=== PATIENT | male | born 1965 | race Caucasian/White ===

== ENCOUNTER → 2016-03-25 | Outpatient (CLI) | payer OTHER ==
--- NOTE | 2016-03-26 12:03 | PE ---
EXAMINATION TYPE: PET CT fusion skull to thigh DATE OF EXAM: 03/25/2016 2:01 PM CLINICAL HISTORY: 51-year-old male with solitary pulmonary nodule, initial exam. Patient also with hi story of thyroid cancer status post surgery performed in November and December 2015. TECHNIQUE: Following the intravenous administration of 13.0 mCi of F-18 FDG, whole body images are performed from the skull base to the midthigh. Images are reviewed on the computer in the coronal, a xial, and sagittal planes. Reconstructed rotating images are created on independent workstation and reviewed on the computer. A localization and attenuation correction CT is performed in conjunction with the PET scan. Glucose level: 91 mg/dL COMPARISON: CT chest 09/07/2015 and 10/31/2013 FINDINGS: PET: There is intense increased FDG uptake within the masseter muscles and the right pterygoid musculature . This suggests muscular activity, probably associated with chewing. Additional intense hypermetabolism involving some of the floor the mouth musculature and in the regio n of the lingual tonsils somewhat asymmetrically towards the right, maximal SUV 9.5. The area of soft tissue irregularity with associated calcification along the left aryepiglottic fold shows no discrete FDG uptake. There is borderline intense FDG uptake in the region of the larynx, maximal SUV 5.6, but no discrete CT abnormality. Likely product of phonation. There is slight increased FDG uptake, borderline moderate, in the right thyroidectomy bed and also an teriorly along the strap musculature, maximal SUV 3.0. No abnormal soft tissue by CT. A nonenlarged upper right cervical lymph node measures 7 mm and shows borderline moderate FDG uptake of 3.2. A prominent but nonenlarged 9 mm left superior mediastinal lymph node shows no discrete FDG uptake. Two adjacent 6 mm pulmonary nodules along the minor fissure are unchanged from 2014. Small 4 mm pulmonary nodule peripheral right base axial image 125 is unchanged from 2014 as is a tiny 3 mm pulmonary nodule peripheral right lower lung axial image 114. No suspicious hypermetabolism within the lungs. Heterogeneous FDG uptake of the liver likely physiologic. Otherwise, physiologic FDG uptake within the chest, abdomen, and pelvis. Scattered mild to moderate FDG uptake especially in the thoracic spine likely on a degenerative basis . ATTENUATION CORRECTION CT: No enlarged cervical lymphadenopathy seen. Status post thyroidectomy. Heart is borderline enlarged without pericardial effusion. Aorta is normal caliber with conventional arch vessel branching anatomy. Otherwise, no thoracic lymphadenopathy. Patchy opacities dependently within the lungs suggestive of atelectasis. No pleural effusion. Moderate right greater than left a symmetric gynecomastia. No dilated small bowel, free fluid, or free air. Normal appendix. Scattered prominent mesenteric lymp h nodes measuring up to 6 mm appear unchanged from 09/07/2015 where scanning extended into the upper a bdomen. Bladder is nondistended. Prostate gland is enlarged measuring 5.9 cm wide with central prostatic calc ifications. No abnormal fluid collection in the pelvis or pelvic lymphadenopathy. Bones: There is L1-L2 posterior fusion hardware. No osseous destructive process. IMPRESSION: 1. Pulmonary nodules measuring up to 6 mm in the right lung are stable from 2014 suggesting a benign etiology. No suspicious FDG uptake within the lungs. 2. Status post thyroidectomy. There is mild, borderline moderate FDG uptake in the right thyroidectom y bed and anteriorly along the strap musculature probably on a postsurgical basis. No abnormal soft t issue appreciated by CT. Correlate with tumor markers. 3. Borderline moderate hypermetabolism within a nonenlarged 7 mm right upper cervical lymph node prob ably reactive/post inflammatory. Again, correlate with thyroid tumor markers. This area can be reasse ssed at follow-up. 4. Intense FDG uptake in the region of the lingual tonsils especially on the right could represent to nsillar hypertrophy. Correlate with direct visualization. 5. Prostatomegaly (5.9 cm wide).
== END | disposition home or self-care (01) ==
LOC: RADPETMAIN 09:48
PROVIDERS: ATTEND Internal Medicine Sleep Medicine
DX: R91.8 Other nonspecific abnormal finding of lung field (principal); N40.0 Benign prostatic hyperplasia without lower urinary tract symptoms; E89.0 Postprocedural hypothyroidism; R94.8 Abnormal results of function studies of other organs and systems
CPT/HCPCS: 78815; A9552

== ENCOUNTER → 2016-07-19 | Outpatient (CLI) | payer OTHER ==
--- NOTE | 2016-07-19 10:28 | CT ---
EXAMINATION TYPE: CT chest wo con DATE OF EXAM: 07/19/2016 9:53 AM COMPARISON: 09/07/2015 and 10/31/2013. Also, correlation with PET CT 03/25/2016 HISTORY: 51-year-old male solitary pulmonary nodule TECHNIQUE: Contiguous axial scanning of the chest without IV contrast. Coronal and sagittal reconstru ctions performed. CT DLP: 427.70 mGycm Automated exposure control for dose reduction was used. FINDINGS: Moderate to severe right and mild left gynecomastia incidentally noted. This has progressed even from the PET/CT of 03/25/2016 and can be correlated clinically as to possible etiologies. The heart is normal size with trace pericardial fluid. Aorta is normal caliber with conventional arch vessel branching anatomy. No thoracic lymphadenopathy by CT size criteria. Evaluation of the lungs shows strandy atelectasis or scarring at the left greater than right lung bas e at the anterior right mid lung, a 7 mm an adjacent smaller pulmonary nodule, axial image 28 and 29 are unchanged from 2014. No consolidation or pleural effusion or new pulmonary nodules. Noncontrast images of the upper abdomen show no gross pathology. Mild degenerative disc disease mid thoracic spine. No osseous destructive process. IMPRESSION: 1. A COUPLE ANTERIOR RIGHT MID LUNG PULMONARY NODULES MEASURING UP TO 7 MM ARE STABLE FROM 2014 HAKEEM TIBLE WITH A BENIGN ETIOLOGY. 2. STRANDY ATELECTASIS OR SCARRING AT THE LEFT GREATER THAN RIGHT BASE. 3. MODERATE TO SEVERE RIGHT-SIDED GYNECOMASTIA. THIS HAS PROGRESSED EVEN FROM THE RECENT PET/CT OF . CORRELATE WITH PHYSICAL EXAM FINDINGS TO EXCLUDE ANY SUSPICIOUS PALPABLE ABNORMALITIES AND C ORRELATE CLINICALLY TO POSSIBLE ETIOLOGIES OF INCREASING GYNECOMASTIA.
== END | disposition home or self-care (01) ==
LOC: RADCTMAIN 09:33
PROVIDERS: ATTEND Internal Medicine Sleep Medicine
DX: R91.8 Other nonspecific abnormal finding of lung field (principal)
CPT/HCPCS: 71250

== ENCOUNTER 2016-08-15 11:03 | Day surgery (SDC) | payer OTHER ==
[2016-08-11 10:01] VITALS: BMI 35.1
[~2016-08-15 11:03] MED LIST: DEXAMETHASONE SOD PHOSPHATE 10 MG/ML 1 ML VIAL IV ONE; HEPARIN SODIUM,PORCINE 5,000 UNIT/ML 1 ML VIAL SQ ONE; HYDROmorphone 1 MG/ML 1 ML SYRINGE IVP PRN; MIDAZOLAM 2 MG/2 ML VIAL IV PRN; ONDANSETRON 4 MG/2 ML VIAL IVP ONE; Pre Op ABX Message 1 EACH MISC MISCELLANE ONE; SCOPOLAMINE 1.5MG/72HR PATCH TRANSDERM ONE
[2016-08-15] MEDS ORDERED: LIDOCAINE 1% 20 ML VIAL (10MG/ML) FOR IV START INTRADERMA ONE (11:40)
[2016-08-15] MEDS: LACTATED RINGERS 1,000 ML IV SCH ×2 (11:40→15:35)
[2016-08-15] MEDS ORDERED: HEPARIN SODIUM,PORCINE 5,000 UNIT/ML 1 ML VIAL SQ ONE (12:49)
[2016-08-15] MEDS ORDERED: PROPOFOL 10 MG/ML 20 ML VIAL IV ONE (15:37)
[2016-08-15] MEDS ORDERED: LIDOCAINE 1% INJ 10MG/ML (20 ML MDV) ONE (15:37)
[2016-08-15] MEDS ORDERED: SUCCINYLCHOLINE CHLORIDE 100 MG/5 ML SYR IV ONE (15:37)
[2016-08-15] MEDS ORDERED: HYDROmorphone (PF) 1 MG/ML ONE (15:37)
[2016-08-15] MEDS ORDERED: fentaNYL (PF) 50 MCG/ML 2 ML AMP ONE (15:37)
[2016-08-15] MEDS ORDERED: MIDAZOLAM 2 MG/2 ML VIAL ONE (15:37)
[2016-08-15] MEDS ORDERED: diphenhydrAMINE 50 MG/ML 1 ML VIAL ONE (15:37)
[2016-08-15] MEDS ORDERED: SODIUM CHLORIDE 0.9% 50 ML with ceFAZolin 2,000 MG IV ONE ×2 (15:45)
--- NOTE | 2016-08-15 17:06 | P.OP ---
Date of Procedure: 08/15/16 Preoperative Diagnosis: Breast gynecomastia right Postoperative Diagnosis: Same Procedure(s) Performed: nipple sparing Mastectomy Implants: Anesthesia: MANDI Surgeon: Leana Mcleod Estimated Blood Loss (ml): 25 Pathology: other (Right breast) Condition: stable Disposition: PACU Indications for Procedure: Painful enlarging right breast, Operative Findings: Dense right breast tissue Description of Procedure: Patient was taken to the operating room and following induction of general anesthesia the right breast was prepped and draped in a sterile fashion. An incision was made which was extending from the patient. Medial and lateral. This incision superior and inferior skin flaps were developed. The lighted retractor was utilized to help identify the tissue planes. The skin flaps were developed initially superiorly down to the pectoralis major muscle. The inferior skin flap was then developed to the pectoralis major muscle inferiorly. The breast was then removed from superior to inferior from off the pectoralis major muscle. Hemostasis was attained using electrocautery device as well as the LigaSure. After the specimen was removed it was painted for orientation. At the end of the procedure the wound was examined for hemostasis. It was well irrigated. After we were assured that hemostasis was attained a Bharath-Redman drain was placed. This was brought out laterally. The deep tissues were closed with a 3- 0 Vicryl suture. The skin was closed with a 4-0 Monocryl. All instrument and sponge counts were correct at the end of the case. The patient tolerated the procedure in stable condition.
--- NOTE | 2016-08-15 17:07 | P.DS ---
Providers Attending physician: Leana Mcleod Primary care physician: Santi Luque Plan - Discharge Summary New Discharge Prescriptions: No Action Levothyroxine Sodium [Tirosint] 150 mcg PO DAILY Calcium Carbonate [Calcium] 500 mg PO DAILY Cyclobenzaprine [Flexeril] 10 mg PO HS HYDROcodone/APAP 7.5-325MG [[place] 7.5-325] 1 tab PO Q6HR PRN PRN Reason: Pain Acetaminophen [Acetaminophen ER] 650 mg PO Q4H PRN PRN Reason: Pain Discharge Medication List Calcium Carbonate [Calcium] 500 mg PO DAILY 04/27/16 [History] Levothyroxine Sodium [Tirosint] 150 mcg PO DAILY 04/27/16 [History] Cyclobenzaprine [Flexeril] 10 mg PO HS 08/11/16 [History] HYDROcodone/APAP 7.5-325MG [[place] 7.5-325] 1 tab PO Q6HR PRN 08/11/16 [History] Acetaminophen [Acetaminophen ER] 650 mg PO Q4H PRN 08/15/16 [History] Follow up Appointment(s)/Referral(s): Leana Mcleod MD [STAFF PHYSICIAN] - 1 Week Activity/Diet/Wound Care/Special Instructions: Teaching drain care Discharge Disposition: HOME SELF-CARE
[2016-08-15 17:31] VITALS: TEMP 97.4
[2016-08-15] MEDS ORDERED: HYDROcodone/APAP 5-325MG 1 EACH TAB PO ONE ×2 (18:51→19:05)
[2016-08-15 19:27] VITALS: BP 124/75; PULSE 109; RESP 20
== END 2016-08-15 19:41 | disposition home or self-care (01) ==
LOC: OR 11:03
PROVIDERS: ATTEND Surgery
DX: N62 Hypertrophy of breast (principal); Z88.5 Allergy status to narcotic agent; Z79.891 Long term (current) use of opiate analgesic; Z79.899 Other long term (current) drug therapy; M19.90 Unspecified osteoarthritis, unspecified site
CPT/HCPCS: 88307; 19300; J2250; J1200; J1644; J1100; J2405; J2001; J3010; J1170; J0690; J0330; J2704

== ENCOUNTER → 2017-03-06 | Outpatient (CLI) | payer OTHER | END | disposition home or self-care (01) | LOC: LABWHC1 14:21 | PROVIDERS: ATTEND Internal Medicine Endocrinology, Diabetes & Metabolism | DX: C73 Malignant neoplasm of thyroid gland (principal) | CPT/HCPCS: 36415; 84432; 84443; 86800 ==

== ENCOUNTER → 2017-06-20 | Outpatient (CLI) | payer OTHER ==
[2017-06-20 09:30] LABS: HGB 18.7 gm/dL (13.0-17.5); MCH 28.6 pg (25.0-35.0); MCHC 33.9 g/dL (31.0-37.0); MCV 84.6 fL (80.0-100.0); Mean Platelet Volume 6.8; Platelet Count 291 k/uL (150-450); RBC 6.52 m/uL (4.30-5.90); RDW 13.1 % (11.5-15.5); WBC 7.8 k/uL (3.8-10.6)
--- NOTE | 2017-06-20 09:32 | US ---
EXAMINATION TYPE: US thyroid st tissue head/neck DATE OF EXAM: 06/20/2017 COMPARISON: 10/15/2015 presurgical thyroid ultrasound CLINICAL HISTORY: C73 Malignant neoplasm thyroid gland. thyroidectomy Bilateral neck scanned, no evidence of lymphadenopathy. No residual tissue seen. Normal appearing post thyroidectomy scan. IMPRESSION: No suspicious recurrent masses in the thyroid bed.
[2017-06-20 09:33] LABS: HCT 55.2 % (39.0-53.0)
[2017-06-20 18:07] LABS: Thyroglobulin <0.20 ng/mL (1.60-59.90)
== END | disposition home or self-care (01) ==
LOC: RADUSWWP 08:48
PROVIDERS: ATTEND Internal Medicine Endocrinology, Diabetes & Metabolism
DX: C73 Malignant neoplasm of thyroid gland (principal); E29.1 Testicular hypofunction
CPT/HCPCS: 36415; 76536; 84403; 84432; 84443; 85027; 86800

== ENCOUNTER 2019-01-15 09:20 | Day surgery (SDC) | payer MEDICARE ==
[2019-01-13 10:51] VITALS: BMI 33.8
--- NOTE | 2019-01-15 09:02 | P.GSHP ---
History of Present Illness H&P Date: 01/15/19 CHIEF COMPLAINT: Colon screen HISTORY OF PRESENT ILLNESS: The patient is a 53-year-old male who presents for colon screen. Lower endoscopy was offered for further evaluation and management. PAST MEDICAL HISTORY: Please see list. PAST SURGICAL HISTORY: Please see list. MEDICATIONS: Please see list. ALLERGIES: Please see list. SOCIAL HISTORY: No illicit drug use FAMILY HISTORY: No reports of Crohn disease or ulcerative colitis. REVIEW OF ORGAN SYSTEMS: CONSTITUTIONAL: No reports of fevers or chills. PHYSICAL EXAM: VITAL SIGNS: Stable GENERAL: Well-developed pleasant in no acute distress. HEENT: No scleral icterus. Extraocular movements grossly intact. Moist buccal mucosa. NECK: Supple without lymphadenopathy. CHEST: Unlabored respirations. Equal bilateral excursions. CARDIOVASCULAR: Regular rate and rhythm. Distal 2+ pulses. ABDOMEN: Soft, nontender, nondistended. MUSCULOSKELETAL: No clubbing, cyanosis, or edema. ASSESSMENT: 1. Colon screen. PLAN: 1. 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 thyroid cancer. History of Any Multi-Drug Resistant Organisms: None Reported Past Surgical History: Back Surgery, Breast Surgery, Hernia Repair, Orthopedic Surgery, Tonsillectomy Additional Past Surgical History / Comment(s): 12/28/15 Completion thyroidectomy, Other surgical hx: Partial thyroidectomy, rhizotomy, back fusion, pain clinic procedures, aaron knee arthroscopy, left ankle surgery, left breast lumpectomy, aaron myringotomy,AARON axillary lymph node removed. THYROIDECTOMY, right mastectomy August 2016, COLONOSCOPY Past Anesthesia/Blood Transfusion Reactions: Previous Problems w/ Anesthesia, Postoperative Nausea & Vomiting (PONV) Additional Past Anesthesia/Blood Transfusion Reaction / Comment(s): HAS TROUBLE URINATING POST OP, states he "comes out mad and angry", last two surgeries had no problems urinating. No problems with aggression after anesthesia. Smoking Status: Never smoker - Past Family History Father Family Medical History: Cancer Additional Family Medical History / Comment(s): Metastatic cancer-is ill with this now and is in his early 80's Mother Family Medical History: Cancer Sister(s) Family Medical History: Cancer Medications and Allergies Home Medications Medication Instructions Recorded Confirmed Type Calcium Carbonate [Calcium] 500 mg PO DAILY 04/27/16 01/13/19 History Cyclobenzaprine [Flexeril] 10 mg PO HS 08/11/16 01/13/19 History HYDROcodone/APAP 7.5-325MG [[place] 1 tab PO Q6HR PRN 08/11/16 01/13/19 History 7.5-325] Acetaminophen [Acetaminophen ER] 650 mg PO Q4H PRN 08/15/16 01/13/19 History Levothyroxine Sodium [Levoxyl] 200 mcg PO DAILY 01/13/19 01/13/19 History Tumeric 500 mg PO DAILY 01/13/19 01/13/19 History Allergies Allergy/AdvReac Type Severity Reaction Status Date / Time tramadol Allergy States " Verified 01/13/19 10:42 feels overwhelmed"
[~2019-01-15 09:20] MED LIST changes: -DEXAMETHASONE SOD PHOSPHATE 10 MG/ML 1 ML VIAL IV ONE; -HEPARIN SODIUM,PORCINE 5,000 UNIT/ML 1 ML VIAL SQ ONE; -HYDROmorphone 1 MG/ML 1 ML SYRINGE IVP PRN; +LACTATED RINGERS 1,000 ML IV SCH; +LIDOCAINE 1% 20 ML VIAL (10MG/ML) FOR IV START INTRADERMA PRN; -MIDAZOLAM 2 MG/2 ML VIAL IV PRN; -ONDANSETRON 4 MG/2 ML VIAL IVP ONE; -Pre Op ABX Message 1 EACH MISC MISCELLANE ONE; -SCOPOLAMINE 1.5MG/72HR PATCH TRANSDERM ONE
[2019-01-15 10:02] VITALS: RESP 16; TEMP 97.5
[2019-01-15] MEDS ORDERED: PROPOFOL 10 MG/ML 20 ML VIAL IV ONE (10:31)
--- NOTE | 2019-01-15 10:58 | P.PCN ---
Date of Procedure: 01/15/19 Description of Procedure: PREOPERATIVE DIAGNOSIS: Personal history of high-risk multiple colon adenomas Colonoscopy screening POSTOPERATIVE DIAGNOSIS: Personal history of high-risk multiple colon adenomas Colonoscopy screening Descending colon polyp OPERATION: Colonoscopy to the ileocecal valve and appendiceal orifice. Colonoscopy with cold forceps biopsy SURGEON: Xenia Valerio MD. ANESTHESIA: MAC. INDICATIONS: The patient is a 89year-old male who presents for colonoscopy screening. Last colonoscopy was 2 years ago with fibers rectal adenoma resected. Benefits and risks were described and informed consent was obtained. DESCRIPTION OF PROCEDURE: The patient had undergone Suprep. He had been brought into the operating room and laid in the left lateral decubitus position. After adequate intravenous sedation, the rectum was examined with 2% lidocaine jelly. External hemorrhoids were encountered. The prostate was moderately enlarged. The rectal tone was within normal limits. No lesions were palpated in the rectal vault. An Olympus colonoscope was advanced until the ileocecal valve and appendiceal orifice were clearly viewed. The prep was good with visualization of the mucosal folds. The scope was removed with visualization of each mucosal fold. No scattered diverticulosis was encountered. Descending colon polyp was cold forcep biopsy. No evidence of focal colitis was found. Retroflexion of the scope demonstrated no internal hemorrhoids. The colon was desufflated. The patient had tolerated the procedure well. Withdrawal time was over 6 minutes. FINDINGS: Aronchick preparation quality scale 1 (1-5) No internal hemorrhoids No external hemorrhoids No arteriovenous malformations No sigmoid diverticulosis Removal of 1 polyp: - Cold forceps biopsy at 40 cm from the anal verge, 5 mm polyp, ascending colon No focal colitis. RECOMMENDATIONS: Repeat colonoscopy 3 years, 2021. Plan - Discharge Summary Discharge Rx Participant: No New Discharge Prescriptions: No Action Calcium Carbonate [Calcium] 500 mg PO DAILY Cyclobenzaprine [Flexeril] 10 mg PO HS HYDROcodone/APAP 7.5-325MG [[place] 7.5-325] 1 tab PO Q6HR PRN PRN Reason: Pain Acetaminophen [Acetaminophen ER] 650 mg PO Q4H PRN PRN Reason: Pain Levothyroxine Sodium [Levoxyl] 200 mcg PO DAILY Tumeric 500 mg PO DAILY Discharge Medication List Calcium Carbonate [Calcium] 500 mg PO DAILY 04/27/16 [History] Cyclobenzaprine [Flexeril] 10 mg PO HS 08/11/16 [History] HYDROcodone/APAP 7.5-325MG [[place] 7.5-325] 1 tab PO Q6HR PRN 08/11/16 [History] Acetaminophen [Acetaminophen ER] 650 mg PO Q4H PRN 08/15/16 [History] Levothyroxine Sodium [Levoxyl] 200 mcg PO DAILY 01/13/19 [History] Tumeric 500 mg PO DAILY 01/13/19 [History] Follow up Appointment(s)/Referral(s): Xenia Valerio MD [STAFF PHYSICIAN] - As Needed Patient Instructions/Handouts: Colonoscopy (GEN), Colorectal Polyps (IP) Activity/Diet/Wound Care/Special Instructions: Repeat colonoscopy 3 years, 2021 Discharge Disposition: HOME SELF-CARE
[2019-01-15 11:19] VITALS: BP 114/75; PULSE 94
== END 2019-01-15 11:57 | disposition home or self-care (01) ==
LOC: ORWHC2ENDO 09:20
PROVIDERS: ATTEND Surgery Plastic and Reconstructive Surgery
DX: Z12.11 Encounter for screening for malignant neoplasm of colon (principal); K63.5 Polyp of colon; M19.90 Unspecified osteoarthritis, unspecified site; E89.0 Postprocedural hypothyroidism; H40.9 Unspecified glaucoma; Z86.010 Personal history of colon polyps; Z98.1 Arthrodesis status; Z85.850 Personal history of malignant neoplasm of thyroid; Z87.440 Personal history of urinary (tract) infections; Z90.89 Acquired absence of other organs; Z98.890 Other specified postprocedural states; Z90.11 Acquired absence of right breast and nipple; Z80.9 Family history of malignant neoplasm, unspecified; Z79.890 Hormone replacement therapy; Z79.899 Other long term (current) drug therapy; Z88.6 Allergy status to analgesic agent; Z88.8 Allergy status to other drugs, medicaments and biological substances
CPT/HCPCS: 88305; 45380; J2704

== ENCOUNTER 2019-08-27 10:08 | Emergency (ER) | payer MEDICARE ==
[2019-08-27 10:14] VITALS: BP 141/92; PULSE 80; RESP 18; TEMP 97.8
[2019-08-27] MEDS ORDERED: SODIUM CHLORIDE 0.9% 500 ML 500 ML IV STA (10:27)
[2019-08-27] MEDS ORDERED: MECLIZINE 12.5 MG TAB PO STA (10:27)
[2019-08-27] MEDS ORDERED: ONDANSETRON 4 MG/2 ML VIAL IVP STA (10:27)
[2019-08-27 10:51] LABS: Basophils # (A) 0.1 k/uL (0-0.2); Basophils % (A) 1 %; Eosinophils # (A) 0.3 k/uL (0-0.7); Eosinophils % (A) 4 %; HCT 46.9 % (39.0-53.0); HGB 16.3 gm/dL (13.0-17.5); Lymphocytes # (A) 2.3 k/uL (1.0-4.8); Lymphocytes % (A) 25 %; MCH 30.5 pg (25.0-35.0); MCHC 34.7 g/dL (31.0-37.0); MCV 87.8 fL (80.0-100.0); Mean Platelet Volume 6.8; Monocytes # (A) 0.4 k/uL (0-1.0); Monocytes % (A) 5 %; Neutrophils # (A) 5.8 k/uL (1.3-7.7); Neutrophils % (A) 63 %; Platelet Count 266 k/uL (150-450); RBC 5.35 m/uL (4.30-5.90); RDW 12.8 % (11.5-15.5); WBC 9.1 k/uL (3.8-10.6)
[2019-08-27 11:04] LABS: ALT 23 U/L (4-49); AST 19 U/L (17-59); African American GFR (CKD) >90 (>60 ml/min/1.73 sqM); Albumin 4.5 g/dL (3.5-5.0); Alkaline Phosphatase 65 U/L (38-126); Anion Gap 10 mmol/L; Blood Urea Nitrogen 16 mg/dL (9-20); Calcium 9.2 mg/dL (8.4-10.2); Carbon Dioxide 22 mmol/L (22-30); Chloride 106 mmol/L (98-107); Glucose 120 mg/dL (74-99); Non-African American GFR(CKD) 81 (>60 ml/min/1.73 sqM); Potassium 4.3 mmol/L (3.5-5.1); Sodium 138 mmol/L (137-145); Total Bilirubin 0.7 mg/dL (0.2-1.3); Total Protein 7.7 g/dL (6.3-8.2)
--- NOTE | 2019-08-27 11:25 | CT ---
EXAMINATION TYPE: CT brain wo con DATE OF EXAM: 08/27/2019 HISTORY: dizziness CT DLP: 1054.4 mGycm. Automated Exposure Control for Dose Reduction was Utilized. TECHNIQUE: CT scan of the head is performed without contrast. COMPARISON: None. FINDINGS: There is no acute intracranial hemorrhage or midline shift identified. There is diffuse v entricular and sulcal prominence consistent with diffuse age-related cerebral atrophy greatest over b ilateral frontal lobes. Link-white matter differentiation is fairly well maintained. Patchy fluid pos teriorly in the right sphenoid and maxillary sinus with fairly moderate mucosal thickening in the eth moid sinuses bilaterally that has some patchy fluid anteriorly. Posterior opacification suspected flu id in the left frontal sinus. Globes are intact bilaterally. IMPRESSION: No acute intracranial hemorrhage or midline shift. There is mild diffuse age-related ce rebral atrophy greatest over bilateral frontal lobes. Acute on chronic paranasal sinus disease noted as detailed above.
--- NOTE | 2019-08-27 11:51 | ED ---
Headache HPI - General Chief Complaint: Headache Stated Complaint: headaches/dizziness Time Seen by Provider: 08/27/19 10:18 Source: RN notes reviewed Mode of arrival: ambulatory Limitations: no limitations - History of Present Illness Initial Comments: 54-year-old male presents emergency Department with chief complaint of dizziness. Patient states it started 6 days ago. Patient states it's only worse with moving states that she started when he laid down and onset for. He states it looks left groin does not happen. He states that the symptoms re solved if he is sitting still, there is no symptoms of chest pain no shortness of breath no fevers or chills. Patient states his normal headache. Patient denies any blurred vision no focal weakness. Patient offers no other complaints, no new medications. - Related Data Home Medications Medication Instructions Recorded Confirmed Cyclobenzaprine [Flexeril] 10 mg PO BID PRN 08/11/16 08/27/19 Acetaminophen [Acetaminophen ER] 650 mg PO QAM 08/15/16 08/27/19 Levothyroxine Sodium [Levoxyl] 200 mcg PO DAILY 01/13/19 08/27/19 Previous Rx's Medication Instructions Recorded Meclizine [Antivert] 25 mg PO TID PRN #15 tab 08/27/19 Allergies Allergy/AdvReac Type Severity Reaction Status Date / Time tramadol AdvReac States " Verified 08/27/19 10:52 feels overwhelmed" Review of Systems ROS Statement: Those systems with pertinent positive or pertinent negative responses have been documented in the HPI. ROS Other: All systems not noted in ROS Statement are negative. Past Medical History Past Medical History: Cancer, Eye Disorder, Osteoarthritis (OA), Prostate Disorder, Thyroid Disorder Additional Past Medical History / Comment(s): hx heart murmur, DDD, glaucoma rt eye-NO RX NEEDED, FREQUENT UTI'S, HX EPIDIDYMITIS, hx. thyroid cancer. History of Any Multi-Drug Resistant Organisms: None Reported Past Surgical History: Back Surgery, Breast Surgery, Hernia Repair, Orthopedic Surgery, Tonsillectomy Additional Past Surgical History / Comment(s): 12/28/15 Completion thyroidectomy, Other surgical hx: Partial thyroidectomy, rhizotomy, back fusion, pain clinic procedures, aaron knee arthroscopy, left ankle surgery, left breast lumpectomy, aaron myringotomy,AARON axillary lymph node removed. THYROIDECTOMY, right mastectomy August 2016, COLONOSCOPY Past Anesthesia/Blood Transfusion Reactions: Previous Problems w/ Anesthesia, Postoperative Nausea & Vomiting (PONV) Additional Past Anesthesia/Blood Transfusion Reaction / Comment(s): HAS TROUBLE URINATING POST OP, states he "comes out mad and angry", last two surgeries had no problems urinating. No problems with aggression after anesthesia. Past Psychological History: No Psychological Hx Reported Smoking Status: Never smoker - Past Family History Father Family Medical History: Cancer Additional Family Medical History / Comment(s): Metastatic cancer-is ill with this now and is in his early 80's Mother Family Medical History: Cancer Sister(s) Family Medical History: Cancer General Exam Limitations: no limitations General appearance: alert, in no apparent distress Head exam: Present: atraumatic, normocephalic, normal inspection Eye exam: Present: normal appearance, PERRL, EOMI. Absent: scleral icterus, conjunctival injection, periorbital swelling ENT exam: Present: normal exam, normal oropharynx, mucous membranes moist, TM's normal bilaterally Neck exam: Present: normal inspection, full ROM. Absent: tenderness, meningismus, lymphadenopathy Respiratory exam: Present: normal lung sounds bilaterally. Absent: respiratory distress, wheezes, rales, rhonchi, stridor Cardiovascular Exam: Present: regular rate, normal rhythm, normal heart sounds. Absent: systolic murmur, diastolic murmur, rubs, gallop, clicks GI/Abdominal exam: Present: soft, normal bowel sounds. Absent: distended, tenderness, guarding, rebound, rigid Neurological exam: Present: alert, oriented X3, CN II-XII intact, reflexes normal. Absent: motor sensory deficit Skin exam: Present: warm, dry, intact, normal color. Absent: rash Course Vital Signs 08/27/19 10:12 Temperature 97.8 F Pulse Rate 80 Respiratory 18 Rate Blood Pressure 141/92 O2 Sat by Pulse 97 Oximetry Medical Decision Making - Medical Decision Making 54-year-old male presented for dizziness. Labs, EKG reviewed no acute abnormality. CT of brain shows parasinus disease otherwise no mass or intracr anial hemorrhage. Patient feels improved after Antivert. Patient's symptoms are only with positional changes. Patient has no ataxia. Return parameters were discussed. - Lab Data Result diagrams: 08/27/19 10:33 08/27/19 10:33 Lab Results 08/27/19 08/27/19 08/27/19 Range/Units 10:33 10:33 10:33 WBC 9.1 (3.8-10.6) k/uL RBC 5.35 (4.30-5.90) m/uL Hgb 16.3 (13.0-17.5) gm/dL Hct 46.9 (39.0-53.0) % MCV 87.8 (80.0-100.0) fL MCH 30.5 (25.0-35.0) pg MCHC 34.7 (31.0-37.0) g/dL RDW 12.8 (11.5-15.5) % Plt Count 266 (150-450) k/uL Neutrophils % 63 % Lymphocytes % 25 % Monocytes % 5 % Eosinophils % 4 % Basophils % 1 % Neutrophils # 5.8 (1.3-7.7) k/uL Lymphocytes # 2.3 (1.0-4.8) k/uL Monocytes # 0.4 (0-1.0) k/uL Eosinophils # 0.3 (0-0.7) k/uL Basophils # 0.1 (0-0.2) k/uL Sodium 138 (137-145) mmol/L Potassium 4.3 (3.5-5.1) mmol/L Chloride 106 (98-107) mmol/L Carbon Dioxide 22 (22-30) mmol/L Anion Gap 10 mmol/L BUN 16 (9-20) mg/dL Creatinine 1.03 (0.66-1.25) mg/dL Est GFR (CKD-EPI)AfAm >90 (>60 ml/min/1.73 sqM) Est GFR (CKD-EPI)NonAf 81 (>60 ml/min/1.73 sqM) Glucose 120 H (74-99) mg/dL Calcium 9.2 (8.4-10.2) mg/dL Total Bilirubin 0.7 (0.2-1.3) mg/dL AST 19 (17-59) U/L ALT 23 (4-49) U/L Alkaline Phosphatase 65 (38-126) U/L Troponin I <0.012 (0.000-0.034) ng/mL Total Protein 7.7 (6.3-8.2) g/dL Albumin 4.5 (3.5-5.0) g/dL Disposition Clinical Impression: Vertigo Disposition: HOME SELF-CARE Condition: Stable Instructions (If sedation given, give patient instructions): Vertigo (ED) Additional Instructions: Please return to the Emergency Department if symptoms worsen or any other concerns. Prescriptions: Meclizine [Antivert] 25 mg PO TID PRN #15 tab PRN Reason: Vertigo Is patient prescribed a controlled substance at d/c from ED?: No Referrals: Santi Luque DO [Primary Care Provider] - 1-2 days Samuel Saldivar MD [STAFF PHYSICIAN] - 1-2 days Time of Disposition: 11:49
== END 2019-08-27 12:17 | disposition home or self-care (01) ==
LOC: EC 10:08
DX: R42 Dizziness and giddiness (principal); R51 Headache; M19.90 Unspecified osteoarthritis, unspecified site; E07.9 Disorder of thyroid, unspecified; Z79.890 Hormone replacement therapy; Z79.899 Other long term (current) drug therapy; Z88.6 Allergy status to analgesic agent; Z90.11 Acquired absence of right breast and nipple; Z90.89 Acquired absence of other organs; Z85.850 Personal history of malignant neoplasm of thyroid
CPT/HCPCS: 36415; 93005; 80053; 84484; 85025; 70450; 99284; 96374; 96361; J2405

== ENCOUNTER → 2020-01-07 | Outpatient (CLI) | payer MEDICARE ==
--- NOTE | 2020-01-07 14:56 | US ---
EXAMINATION TYPE: US thyroid st tissue head/neck DATE OF EXAM: 01/07/2020 COMPARISON: NONE CLINICAL HISTORY: C73 Malignant neoplasm of thyroid gland. Removed CA GLAND SIZE: Right Lobe: Surgically absent Left Lobe: Surgically absent Isthmus Thickness: Surgically absent NODULES no nodules or recurrent soft tissue is evident. Bilateral neck scanned, no evidence of lymphadenopathy. IMPRESSION: 1. Normal thyroid bed.
== END | disposition home or self-care (01) ==
LOC: RADUSWWP 12:59
PROVIDERS: ATTEND Internal Medicine Endocrinology, Diabetes & Metabolism
DX: C73 Malignant neoplasm of thyroid gland (principal)
CPT/HCPCS: 76536

== ENCOUNTER → 2020-08-13 | Outpatient (CLI) | payer MEDICARE ==
--- NOTE | 2020-08-13 14:14 | FL ---
EXAMINATION TYPE: FL barium swallow DATE OF EXAM: 08/13/2020 CLINICAL HISTORY: Heartburn, indigestion TECHNIQUE: A double contrast esophagram is performed utilizing air and barium. A total of 1 minute 8 seconds of fluoroscopic time was utilized during procedure. COMPARISON: None FINDINGS: The esophagus shows normal motility and emptying into the stomach. No evidence of hiatal h ernia or stricture noted. No significant gastroesophageal reflux was seen during real time performanc e of this study. IMPRESSION: 1. Unremarkable double contrast esophagram study.
== END | disposition home or self-care (01) ==
LOC: RADUSWWP 10:38
PROVIDERS: ATTEND Family Medicine
DX: K30 Functional dyspepsia (principal)
CPT/HCPCS: 74220

== ENCOUNTER → 2020-09-16 | Outpatient (CLI) | payer MEDICARE ==
--- NOTE | 2020-09-21 15:20 | NM ---
EXAMINATION TYPE: NM DatScan Brain SPECT DATE OF EXAM: 09/16/2020 COMPARISON: NONE HISTORY: Tremors, G 25.0 TECHNIQUE: 10 drops of Lugol's solution was administered 1 hour prior to injection as a thyroid bloc sharon agent. After the administration of 4.41 mCi I-123 Ioflupane DaTscan. Images obtained 3 hours p ost injection. SPECT images of the brain were acquired with axial and coronal reconstructions. FINDINGS: The uptake along the striata shows the expected normal configuration, is comma-shaped. There is ques tionable asymmetric overall intensity right greater than left however. Quantitative analysis is not a vailable at this time however. IMPRESSION: Mild asymmetry in uptake as described.
== END | disposition home or self-care (01) ==
LOC: RADNMMAIN 10:49
PROVIDERS: ATTEND Psychiatry & Neurology Neurology
DX: G25.0 Essential tremor (principal)
CPT/HCPCS: 78803; A9584

== ENCOUNTER → 2021-01-11 | Outpatient (CLI) | payer MEDICARE | END | disposition home or self-care (01) | LOC: LABWHC1 10:58 | PROVIDERS: ATTEND Internal Medicine Endocrinology, Diabetes & Metabolism | DX: C73 Malignant neoplasm of thyroid gland (principal) | CPT/HCPCS: 36415; 84432; 84443; 86800 ==

== ENCOUNTER → 2021-03-14 | Outpatient (CLI) | payer SELFPAY | END | disposition home or self-care (01) | LOC: LABWHC1 10:31 | PROVIDERS: ATTEND Internal Medicine Endocrinology, Diabetes & Metabolism | DX: C73 Malignant neoplasm of thyroid gland (principal) | CPT/HCPCS: 36415; 84443 ==

== ENCOUNTER 2021-09-07 07:31 | Day surgery (SDC) | payer MEDICARE ==
[2021-09-02 14:08] VITALS: BMI 33.0
[~2021-09-07 07:31] MED LIST changes: +LIDOCAINE 1% (10MG/ML) FOR IV START INTRADERMA PRN; -LIDOCAINE 1% 20 ML VIAL (10MG/ML) FOR IV START INTRADERMA PRN
--- NOTE | 2021-09-07 07:39 | P.GSHP ---
History of Present Illness H&P Date: 09/07/21 CHIEF COMPLAINT: Colon screen HISTORY OF PRESENT ILLNESS: The patient is a 56-year-old male who presents for colon screen. Lower endoscopy was offered for further evaluation and management. PAST MEDICAL HISTORY: Please see list. PAST SURGICAL HISTORY: Please see list. MEDICATIONS: Please see list. ALLERGIES: Please see list. SOCIAL HISTORY: No illicit drug use FAMILY HISTORY: No reports of Crohn disease or ulcerative colitis. REVIEW OF ORGAN SYSTEMS: CONSTITUTIONAL: No reports of fevers or chills. PHYSICAL EXAM: VITAL SIGNS: Stable GENERAL: Well-developed pleasant in no acute distress. HEENT: No scleral icterus. Extraocular movements grossly intact. Moist buccal mucosa. NECK: Supple without lymphadenopathy. CHEST: Unlabored respirations. Equal bilateral excursions. CARDIOVASCULAR: Regular rate and rhythm. Distal 2+ pulses. ABDOMEN: Soft, nontender, nondistended. MUSCULOSKELETAL: No clubbing, cyanosis, or edema. ASSESSMENT: 1. Colon screen. PLAN: 1. Recommend proceeding with a lower endoscopy Past Medical History Past Medical History: Cancer, Musculoskeletal Disorder, Osteoarthritis (OA), Prostate Disorder, Rheumatoid Arthritis (RA), Thyroid Disorder Additional Past Medical History / Comment(s): Hx heart murmur as child, DDD w/ fusion L1-2, Freq UTI'S, BPH - recent AB Rx, Hx EPIDIDYMITIS, hx thyroid cancer. "Pre-diabetes." Neuropathy BLE. Hx pos TB w/ tx. History of Any Multi-Drug Resistant Organisms: None Reported Past Surgical History: Back Surgery, Breast Surgery, Hernia Repair, Orthopedic Surgery, Tonsillectomy Additional Past Surgical History / Comment(s): 12/28/15 Completion thyroidectomy, Other surgical hx: Partial thyroidectomy, rhizotomy, back fusion, pain clinic procedures, aaron knee arthroscopy, left ankle surgery, left breast lumpectomy, BMT, AARON axillary lymph node removed, Rt mastectomy 08/2016, COLONOSCOPY, abd hernia Past Anesthesia/Blood Transfusion Reactions: Previous Problems w/ Anesthesia, Postoperative Nausea & Vomiting (PONV) Additional Past Anesthesia/Blood Transfusion Reaction / Comment(s): Hx trouble urinating post-op, states he "comes out mad and angry", last two surgeries had no problems urinating. No problems with aggression after MAC anesthesia. Smoking Status: Never smoker - Past Family History Father Family Medical History: Cancer Additional Family Medical History / Comment(s): Lung cancer, w/ Metastatic cancer-is ill with this now and is in his early 80's Mother Family Medical History: Cancer Additional Family Medical History / Comment(s): stomach cancer Sister(s) Family Medical History: Cancer Additional Family Medical History / Comment(s): melanoma cancer; 1 other sister w/ breast cancer, director skills cancer Medications and Allergies Home Medications Medication Instructions Recorded Confirmed Type Cyclobenzaprine [Flexeril] 10 mg PO BID PRN 08/11/16 09/02/21 History Levothyroxine Sodium [Levoxyl] 300 mcg PO MOTUWETHFRSA 01/13/19 09/02/21 History Aspirin [Aspirin EC] 1,500 mg PO DAILY PRN 09/02/21 09/02/21 History Calcium Citrate 500 mg PO DAILY 09/02/21 09/02/21 History Folic Acid 1 mg PO DAILY 09/02/21 09/02/21 History Gabapentin [Neurontin] 300 mg PO DAILY 09/02/21 09/02/21 History HYDROcodone/APAP 7.5-325MG [[place] 1 tab PO Q6HR PRN 09/02/21 09/02/21 History 7.5-325] Multivit-Min/Folic/Vit K/Lycop 1 each PO DAILY 09/02/21 09/02/21 History [Men's Multivitamin Tablet] metHOTREXate sodium [Methotrexate] 20 mg PO SA 09/02/21 09/02/21 History Allergies Allergy/AdvReac Type Severity Reaction Status Date / Time primidone AdvReac emotional, Verified 09/02/21 13:43 depressed tramadol AdvReac States " Verified 09/02/21 13:43 feels overwhelmed"
[2021-09-07 07:57] VITALS: TEMP 97.6
[2021-09-07 08:11] LABS: Glucose,Whole Blood 131 mg/dL (70-110)
[2021-09-07] MEDS ORDERED: PROPOFOL 10 MG/ML 20 ML VIAL IV ONE (09:01)
[2021-09-07 09:25] VITALS: RESP 16
[2021-09-07 09:39] VITALS: BP 133/70; PULSE 98
--- NOTE | 2021-09-13 12:44 | P.PCN ---
Date of Procedure: 09/07/21 Description of Procedure: PREOPERATIVE DIAGNOSIS: History of colon polyp Colonoscopy screening. POSTOPERATIVE DIAGNOSIS: History of colon polyp Colonoscopy screening. Hemorrhoids, external and internal, grade 3 Prostate nodule OPERATION: Colonoscopy to the cecum, ileocecal valve and appendiceal orifice. SURGEON: Xenia Valerio MD. ANESTHESIA: MAC. INDICATIONS: The patient is a 56-year-old male who presents for colonoscopy screening. Last colonoscopy less than 5 years ago. Benefits and risks were described and informed consent was obtained. DESCRIPTION OF PROCEDURE: The patient had undergone Gatorade MiraLAX prep. The patient had been brought into the operating room and laid in the left lateral decubitus position. After adequate intravenous sedation, the rectum was examined with 2% lidocaine jelly. External hemorrhoids were encountered. Prostate nodule was identified of 5-8 mm. The rectal tone was within normal limits. No lesions were palpated in the rectal vault. An Olympus colonoscope was advanced until the cecum, ileocecal valve and appendiceal orifice were viewed. The prep was good. No scattered diverticulosis was encountered. No colonic polyps were found. No evidence of focal colitis was found. Retroflexion of the scope demonstrated grade 3 internal hemorrhoids without active bleeding or inflammation. The colon was desufflated. The patient had tolerated the procedure well. Withdrawal time was over 6 minutes. FINDINGS: Aronchick preparation quality scale 2 (1-5) Prostate nodule was identified of 5-8 mm. Internal hemorrhoids, grade 3 External prolapsed hemorrhoids, greade 3 No arteriovenous malformations. No adenomatous polyps. No focal colitis. RECOMMENDATIONS: Lower endoscopy in 5 years, 2026 Plan - Discharge Summary Discharge Rx Participant: No New Discharge Prescriptions: Continue Cyclobenzaprine [Flexeril] 10 mg PO BID PRN PRN Reason: Muscle Spasm Levothyroxine Sodium [Levoxyl] 300 mcg PO MOTUWETHFRSA HYDROcodone/APAP 7.5-325MG [[place] 7.5-325] 1 tab PO Q6HR PRN PRN Reason: Pain metHOTREXate sodium [Methotrexate] 20 mg PO SA Multivit-Min/Folic/Vit K/Lycop [Men's Multivitamin Tablet] 1 each PO DAILY Calcium Citrate 500 mg PO DAILY Gabapentin [Neurontin] 300 mg PO DAILY Folic Acid 1 mg PO DAILY Aspirin [Aspirin EC] 1,500 mg PO DAILY PRN PRN Reason: Pain Discharge Medication List Cyclobenzaprine [Flexeril] 10 mg PO BID PRN 08/11/16 [History] Levothyroxine Sodium [Levoxyl] 300 mcg PO MOTUWETHFRSA 01/13/19 [History] Aspirin [Aspirin EC] 1,500 mg PO DAILY PRN 09/02/21 [History] Calcium Citrate 500 mg PO DAILY 09/02/21 [History] Folic Acid 1 mg PO DAILY 09/02/21 [History] Gabapentin [Neurontin] 300 mg PO DAILY 09/02/21 [History] HYDROcodone/APAP 7.5-325MG [[place] 7.5-325] 1 tab PO Q6HR PRN 09/02/21 [History] Multivit-Min/Folic/Vit K/Lycop [Men's Multivitamin Tablet] 1 each PO DAILY 09/02/21 [History] metHOTREXate sodium [Methotrexate] 20 mg PO SA 09/02/21 [History] Follow up Appointment(s)/Referral(s): Xenia Valerio MD [STAFF PHYSICIAN] - 09/20/21 Patient Instructions/Handouts: *[facility] - (Anesthesia) Endoscopy Discharge Instructions Activity/Diet/Wound Care/Special Instructions: Repeat colonoscopy 5 years, 2026 Discharge Disposition: HOME SELF-CARE
== END 2021-09-07 10:09 | disposition home or self-care (01) ==
LOC: ORWHC2ENDO 07:31
PROVIDERS: ATTEND Surgery Plastic and Reconstructive Surgery
DX: Z12.11 Encounter for screening for malignant neoplasm of colon (principal); Z86.010 Personal history of colon polyps; K64.4 Residual hemorrhoidal skin tags; M06.9 Rheumatoid arthritis, unspecified; E07.9 Disorder of thyroid, unspecified; M19.90 Unspecified osteoarthritis, unspecified site; Z98.1 Arthrodesis status; N40.0 Benign prostatic hyperplasia without lower urinary tract symptoms; R73.03 Prediabetes; G62.9 Polyneuropathy, unspecified; N42.9 Disorder of prostate, unspecified; Z86.11 Personal history of tuberculosis; Z90.11 Acquired absence of right breast and nipple; Z80.0 Family history of malignant neoplasm of digestive organs; Z80.1 Family history of malignant neoplasm of trachea, bronchus and lung; Z81.1 Family history of alcohol abuse and dependence; Z80.8 Family history of malignant neoplasm of other organs or systems; Z79.899 Other long term (current) drug therapy; Z79.82 Long term (current) use of aspirin; Z88.8 Allergy status to other drugs, medicaments and biological substances
CPT/HCPCS: G0105; J2704; 45378

== ENCOUNTER → 2021-09-14 | Outpatient (CLI) | payer MEDICARE | END | disposition home or self-care (01) | LOC: LABWHC1 10:15 | PROVIDERS: ATTEND Internal Medicine Endocrinology, Diabetes & Metabolism | DX: C73 Malignant neoplasm of thyroid gland (principal) | CPT/HCPCS: 36415; 84432; 84443; 86800 ==

== ENCOUNTER → 2022-02-09 | Outpatient (CLI) | payer MEDICARE ==
--- NOTE | 2022-02-09 12:34 | US ---
EXAMINATION TYPE: US thyroid st tissue head/neck DATE OF EXAM: 02/09/2022 COMPARISON: 01/07/2020 CLINICAL HISTORY: 57-year-old male C73 MALIGNANT NEOPLASM OF THYROID GLAND. Hx thyroid cancer with gl and removed in 2013. Patient is on levothyroxine. TECHNIQUE: Multiple sonographic images of the thyroidectomy bed are obtained. FINDINGS: GLAND SIZE: Right Lobe: Surgically absent Left Lobe: Surgically absent Isthmus Thickness: Surgically absent Bilateral neck scanned, hypoechoic area with hyperechoic center seen: 0.8 x 0.6 x 0.3 cm. This is loc ated along the right side of the neck, inferior to the thyroidectomy bed. IMPRESSION: The thyroidectomy bed remains clear. A nonenlarged 6 mm short axis lymph node is seen along the right side of the neck just below the surgical site. While this has an overall benign appearance, it was n ot seen previously. Follow-up as clinically indicated.
== END | disposition home or self-care (01) ==
LOC: RADUSWWP 09:37
PROVIDERS: ATTEND Internal Medicine Endocrinology, Diabetes & Metabolism
DX: C73 Malignant neoplasm of thyroid gland (principal); R59.0 Localized enlarged lymph nodes
CPT/HCPCS: 76536

== ENCOUNTER 2022-02-18 20:25 | Emergency (ER) | payer MEDICARE ==
[2022-02-18] MEDS ORDERED: ONDANSETRON 4 MG/2 ML VIAL IVP STA (20:44)
[2022-02-18] MEDS ORDERED: KETOROLAC 15 MG/ML 1 ML VIAL IVP STA (20:44)
[2022-02-18] MEDS ORDERED: SODIUM CHLORIDE 0.9% 1,000 ML IV STA (20:44)
[2022-02-18] MEDS ORDERED: MORPHINE SULFATE 4 MG/ML SYRINGE IV STA (20:44)
--- NOTE | 2022-02-18 20:52 | ED ---
Abdominal Pain HPI - General Chief Complaint: Abdominal Pain Stated Complaint: rt pelvic pain/back pain Time Seen by Provider: 02/18/22 20:39 Source: patient, RN notes reviewed Mode of arrival: ambulatory - History of Present Illness Initial Comments: This is a pleasant 57-year-old male who presents to emergency department complaining of right pelvic pain which started suddenly at about 7 PM. Patient does have chronic back pain but states this is unchanged. Patient currently being treated for prostatitis by his urologist, Dr. Alvarez. Vision currently on ciprofloxacin. States she's been on this for about 1 week. Patient denying any hematuria. No history of renal stones. The of aortic pathology. Patient denying any injury. Nausea. No diaphoresis. No chest pain or shortness of breath.patient states the pain is sharp in nature, constant, waxes and wanes in intensity. No headache, no fever or chills, no changes in vision or hearing, no sore throat or difficulty with speech, no neck pain, no chest pain or shortness of breath, no abdominal pain, novomiting, no changes in urination or bowel movements, no numbness or tingling, no extremity pain, no skin rashes or lesions. Past medical, surgical, social, and family history reviewed. No history of diabetes or heart disease. MD Complaint: flank pain - Related Data Home Medications Medication Instructions Recorded Confirmed Cyclobenzaprine [Flexeril] 10 mg PO BID PRN 08/11/16 09/07/21 Levothyroxine Sodium [Levoxyl] 300 mcg PO MOTUWETHFRSA 01/13/19 09/07/21 Aspirin [Aspirin EC] 1,500 mg PO DAILY PRN 09/02/21 09/07/21 Calcium Citrate 500 mg PO DAILY 09/02/21 09/07/21 Folic Acid 1 mg PO DAILY 09/02/21 09/07/21 Gabapentin [Neurontin] 300 mg PO DAILY 09/02/21 09/07/21 HYDROcodone/APAP 7.5-325MG [[place] 1 tab PO Q6HR PRN 09/02/21 09/07/21 7.5-325] Multivit-Min/Folic/Vit K/Lycop 1 each PO DAILY 09/02/21 09/07/21 [Men's Multivitamin Tablet] metHOTREXate sodium [Methotrexate] 20 mg PO SA 09/02/21 09/07/21 Previous Rx's Medication Instructions Recorded Naproxen [Naprosyn] 375 mg PO Q12HR PRN #20 tablet 02/18/22 Allergies Allergy/AdvReac Type Severity Reaction Status Date / Time primidone AdvReac emotional, Verified 02/18/22 20:30 depressed tramadol AdvReac States " Verified 02/18/22 20:30 feels overwhelmed" Review of Systems ROS Statement: Those systems with pertinent positive or pertinent negative responses have been documented in the HPI. ROS Other: All systems not noted in ROS Statement are negative. Past Medical History Past Medical History: Cancer, Musculoskeletal Disorder, Osteoarthritis (OA), Prostate Disorder, Rheumatoid Arthritis (RA), Thyroid Disorder Additional Past Medical History / Comment(s): Hx heart murmur as child, DDD w/ fusion L1-2, Freq UTI'S, BPH - recent AB Rx, Hx EPIDIDYMITIS, hx thyroid cancer. "Pre-diabetes." Neuropathy BLE. Hx pos TB w/ tx. History of Any Multi-Drug Resistant Organisms: None Reported Past Surgical History: Back Surgery, Breast Surgery, Hernia Repair, Orthopedic Surgery, Tonsillectomy Additional Past Surgical History / Comment(s): 12/28/15 Completion thyr oidectomy, Other surgical hx: Partial thyroidectomy, rhizotomy, back fusion, pain clinic procedures, aaron knee arthroscopy, left ankle surgery, left breast lumpectomy, BMT, AARON axillary lymph node removed, Rt mastectomy 08/2016, COLONOSCOPY, abd hernia Past Anesthesia/Blood Transfusion Reactions: Previous Problems w/ Anesthesia, Postoperative Nausea & Vomiting (PONV) Additional Past Anesthesia/Blood Transfusion Reaction / Comment(s): Hx trouble urinating post-op, states he "comes out mad and angry", last two surgeries had no problems urinating. No problems with aggression after MAC anesthesia. Past Psychological History: No Psychological Hx Reported Smoking Status: Never smoker Past Alcohol Use History: None Reported Past Drug Use History: None Reported - Past Family History Father Family Medical History: Cancer Additional Family Medical History / Comment(s): Lung cancer, w/ Metastatic cancer-is ill with this now and is in his early 80's Mother Family Medical History: Cancer Additional Family Medical History / Comment(s): stomach cancer Sister(s) Family Medical History: Cancer Additional Family Medical History / Comment(s): melanoma cancer; 1 other sister w/ breast cancer, artificial limb maker cancer General Exam - General Exam Comments Initial Comments: Patient in distress secondary to right pelvic/right flank pain. Differential diagnosis: Ureteral colic, musculoskeletal pain, appendicitis, urinary tract infection, less likely aortic or vascular pathology--she has no pulsatile mass. General appearance: alert, in distress, obese Head exam: Present: atraumatic, normocephalic, normal inspection Eye exam: Present: normal appearance, PERRL, EOMI. Absent: scleral icterus, conjunctival injection, periorbital swelling ENT exam: Present: normal exam, mucous membranes moist Neck exam: Present: normal inspection. Absent: tenderness, meningismus, lymphadenopathy Respiratory exam: Present: normal lung sounds bilaterally. Absent: respiratory distress, wheezes, rales, rhonchi, stridor Cardiovascular Exam: Present: regular rate, normal rhythm, normal heart sounds. Absent: systolic murmur, diastolic murmur, rubs, gallop, clicks GI/Abdominal exam: Present: soft, normal bowel sounds. Absent: distended, tenderness, guarding, rebound, rigid Extremities exam: Present: normal inspection, full ROM, normal capillary refill. Absent: tenderness, pedal edema, joint swelling, calf tenderness Back exam: Present: normal inspection Neurological exam: Present: alert, oriented X3, CN II-XII intact Psychiatric exam: Present: normal affect, normal mood Skin exam: Present: warm, dry, intact, normal color. Absent: rash Course Vital Signs 02/18/22 02/18/22 02/18/22 20:28 21:24 22:00 Temperature 97.6 F Pulse Rate 119 H 110 H 104 H Respiratory 18 20 18 Rate Blood Pressure 152/88 144/90 140/94 O2 Sat by Pulse 97 97 96 Oximetry 02/18/22 23:11 Temperature 98.1 F Pulse Rate 100 Respiratory 20 Rate Blood Pressure 151/86 O2 Sat by Pulse 97 Oximetry - Reevaluation(s) Reevaluation #1: 02/18/22 22:57 Medical record is reviewed Symptoms are improved here in the emergency department Patient is informed of results and questions answered Patient in no distress Medical Decision Making - Medical Decision Making Differential diagnosis ureteral colic, urinary tract infection, given the presentation, less likely appendicitis, vascular etiology such as aortic pathology. Patient has no pulsatile mass. Shingles unlikely, but possible. Patient's CBC is normal. Urinalysis does show 11 white cells per high-powered field, 2 red cells, rare bacteria, 1 squamous epithelial cell. Patient is already on ciprofloxacin for prostatitis. Patient did have coarse calcifications of the prostate and with prostatomegaly noted. No evidence of hydronephrosis or hydroureter Patient shows no evidence of cauda equina syndrome. He does have chronic low back pain which she states does cause him pain on a daily basis. No specific reason found for the patient's pain. This does raise suspicion of a small renal stone, bowel spasm also possible. Patient also has chronic back pain. Lower thoracic radiculopathy also possible given the area of the patient's pain. Possibly T12 or L1. Discussed all findings in detail with the patient. Discussed findings with the ED attending physician. We discussed disposition. Patient does not feel ill or toxic. Patient states he feels nervous just to be here. Patient states he feels well enough to go home. Discharged through shared decision-making. The case was discussed in detail with ED attending physician. Presentation, findings, treatment plan discussed in detail. Instruction Assistant Principal Dr. Cervantes - Lab Data Result diagrams: 02/18/22 20:55 02/18/22 22:06 Lab Results 02/18/22 02/18/22 02/18/22 Range/Units 20:55 20:55 22:06 WBC 8.2 (3.8-10.6) k/uL RBC 5.13 (4.30-5.90) m/uL Hgb 16.1 (13.0-17.5) gm/dL Hct 46.1 (39.0-53.0) % MCV 89.8 (80.0-100.0) fL MCH 31.3 (25.0-35.0) pg MCHC 34.9 (31.0-37.0) g/dL RDW 13.1 (11.5-15.5) % Plt Count 286 (150-450) k/uL MPV 7.8 Neutrophils % 60 % Lymphocytes % 27 % Monocytes % 6 % Eosinophils % 4 % Basophils % 1 % Neutrophils # 4.9 (1.3-7.7) k/uL Lymphocytes # 2.2 (1.0-4.8) k/uL Monocytes # 0.5 (0-1.0) k/uL Eosinophils # 0.4 (0-0.7) k/uL Basophils # 0.1 (0-0.2) k/uL Sodium (137-145) mmol/L Potassium (3.5-5.1) mmol/L Chloride (98-107) mmol/L Carbon Dioxide (22-30) mmol/L Anion Gap mmol/L BUN (9-20) mg/dL Creatinine (0.66-1.25) mg/dL Est GFR (CKD-EPI)AfAm (>60 ml/min/1.73 sqM) Est GFR (CKD-EPI)NonAf (>60 ml/min/1.73 sqM) Glucose (74-99) mg/dL Plasma Lactic Acid Mik 2.2 H* (0.7-2.0) mmol/L Calcium (8.4-10.2) mg/dL Total Bilirubin (0.2-1.3) mg/dL AST (17-59) U/L ALT (4-49) U/L Alkaline Phosphatase (38-126) U/L Total Protein (6.3-8.2) g/dL Albumin (3.5-5.0) g/dL Urine Color Yellow Urine Appearance Clear (Clear) Urine pH 5.5 (5.0-8.0) Ur Specific [place] 1.019 (1.001-1.035) Urine Protein Trace H (Negative) Urine Glucose (UA) Negative (Negative) Urine Ketones Negative (Negative) Urine Blood Negative (Negative) Urine Nitrite Negative (Negative) Urine Bilirubin Negative (Negative) Urine Urobilinogen <2.0 (<2.0) mg/dL Ur Leukocyte Esterase Moderate H (Negative) Urine RBC 2 (0-5) /hpf Urine WBC 11 H (0-5) /hpf Ur Squamous Epith Cells 1 (0-4) /hpf Urine Bacteria Rare H (None) /hpf Urine Mucus Rare H (None) /hpf 02/18/22 Range/Units 22:06 WBC (3.8-10.6) k/uL RBC (4.30-5.90) m/uL Hgb (13.0-17.5) gm/dL Hct (39.0-53.0) % MCV (80.0-100.0) fL MCH (25.0-35.0) pg MCHC (31.0-37.0) g/dL RDW (11.5-15.5) % Plt Count (150-450) k/uL MPV Neutrophils % % Lymphocytes % % Monocytes % % Eosinophils % % Basophils % % Neutrophils # (1.3-7.7) k/uL Lymphocytes # (1.0-4.8) k/uL Monocytes # (0-1.0) k/uL Eosinophils # (0-0.7) k/uL Basophils # (0-0.2) k/uL Sodium 140 (137-145) mmol/L Potassium 4.0 (3.5-5.1) mmol/L Chloride 106 (98-107) mmol/L Carbon Dioxide 25 (22-30) mmol/L Anion Gap 9 mmol/L BUN 9 (9-20) mg/dL Creatinine 1.06 (0.66-1.25) mg/dL Est GFR (CKD-EPI)AfAm 89 (>60 ml/min/1.73 sqM) Est GFR (CKD-EPI)NonAf 77 (>60 ml/min/1.73 sqM) Glucose 133 H (74-99) mg/dL Plasma Lactic Acid Mik (0.7-2.0) mmol/L Calcium 8.3 L (8.4-10.2) mg/dL Total Bilirubin 0.5 (0.2-1.3) mg/dL AST 32 (17-59) U/L ALT 38 (4-49) U/L Alkaline Phosphatase 68 (38-126) U/L Total Protein 7.1 (6.3-8.2) g/dL Albumin 4.2 (3.5-5.0) g/dL Urine Color Urine Appearance (Clear) Urine pH (5.0-8.0) Ur Specific [place] (1.001-1.035) Urine Protein (Negative) Urine Glucose (UA) (Negative) Urine Ketones (Negative) Urine Blood (Negative) Urine Nitrite (Negative) Urine Bilirubin (Negative) Urine Urobilinogen (<2.0) mg/dL Ur Leukocyte Esterase (Negative) Urine RBC (0-5) /hpf Urine WBC (0-5) /hpf Ur Squamous Epith Cells (0-4) /hpf Urine Bacteria (None) /hpf Urine Mucus (None) /hpf - Radiology Data Radiology results: report reviewed, image reviewed My independent interpretation of the patient's computed tomography scan shows no definitive evidence of acute pathology. I did review the radiology interpretation. Disposition Clinical Impression: Pelvic pain in male, Chronic back pain Narrative: Currently being treated for prostatitis Disposition: HOME SELF-CARE Condition: Stable Instructions (If sedation given, give patient instructions): Pelvic Pain in Men (ED), Chronic Back Pain (DC) Additional Instructions: Continue the antibiotics as directed by your urologist. Follow-up with your regular physician as directed. Return to the ER immediately if any symptoms worsen, new symptoms arise, or any other problems develop. Prescriptions: Naproxen [Naprosyn] 375 mg PO Q12HR PRN #20 tablet PRN Reason: Pain Is patient prescribed a controlled substance at d/c from ED?: No Referrals: Santi Luque DO [Primary Care Provider] - 1-2 days Jordi Alvarez MD [STAFF PHYSICIAN] - 1-2 days Time of Disposition: 23:24
[2022-02-18 21:30] LABS: Basophils # (A) 0.1 k/uL (0-0.2); Basophils % (A) 1 %; Eosinophils # (A) 0.4 k/uL (0-0.7); Eosinophils % (A) 4 %; HCT 46.1 % (39.0-53.0); HGB 16.1 gm/dL (13.0-17.5); Lymphocytes # (A) 2.2 k/uL (1.0-4.8); Lymphocytes % (A) 27 %; MCH 31.3 pg (25.0-35.0); MCHC 34.9 g/dL (31.0-37.0); MCV 89.8 fL (80.0-100.0); Mean Platelet Volume 7.8; Monocytes # (A) 0.5 k/uL (0-1.0); Monocytes % (A) 6 %; Neutrophils # (A) 4.9 k/uL (1.3-7.7); Neutrophils % (A) 60 %; Platelet Count 286 k/uL (150-450); RBC 5.13 m/uL (4.30-5.90); RDW 13.1 % (11.5-15.5); WBC 8.2 k/uL (3.8-10.6)
[2022-02-18 21:52] LABS: Appearance,Urine Clear (Clear); Bacteria,Urine Rare /hpf; Bilirubin,Urine Negative (Negative); Blood,Urine Negative (Negative); Color,Urine Yellow; Glucose,Urine (UA) Negative (Negative); Ketones,Urine Negative (Negative); Leukocyte Esterase,Urine Moderate (Negative); Mucus,Urine Rare /hpf; Nitrite,Urine Negative (Negative); PH, Urine 5.5 (5.0-8.0); Protein,Urine Trace (Negative); RBC,Urine 2 /hpf (0-5); Specific Gravity,Urine 1.019 (1.001-1.035); Squamous Epithelial Cell,Urine 1 /hpf (0-4); Urobilinogen,Urine <2.0 mg/dL (<2.0); WBC,Urine 11 /hpf (0-5)
--- NOTE | 2022-02-18 22:16 | CT ---
EXAMINATION TYPE: CT abdomen pelvis wo con CT DLP: 1251.4 mGycm, Automated exposure control for dose reduction was used. DATE OF EXAM: 02/18/2022 9:49 PM COMPARISON: None. CLINICAL INDICATION:Male, 57 years old with history of Right flank pain/right pelvic pain; RT sided f lank/groin pain TECHNIQUE: Axial CT of the abdomen and pelvis. Sagittal and coronal reformats were created on a [employer] workstation. Contrast used: None. Oral contrast used: without Oral Contrast FINDINGS: LOWER CHEST: Bibasilar atelectasis. ABDOMEN LIVER: Unremarkable GALLBLADDER AND BILE DUCTS: Unremarkable. PANCREAS: Unremarkable. SPLEEN: Unremarkable. ADRENAL GLANDS: Unremarkable. KIDNEYS AND URETERS: No evidence of hydronephrosis or renal calculus. The ureters are unremarkable. PELVIS BLADDER: Unremarkable REPRODUCTIVE: Coarse calcifications of the prostate gland are identified. Prostatomegaly. ABDOMEN & PELVIS STOMACH AND BOWEL: Stomach and duodenum are unremarkable. Scattered diverticula are noted throughout the colon. No evidence of bowel obstruction. PERITONEUM: No evidence of pneumoperitoneum or free fluid. VASCULATURE: No evidence of aortic aneurysm. MUSCULOSKELETAL: Posterior lumbar fusion of L1-L2. No acute osseous abnormalities. LYMPH NODES: No gross evidence for lymphadenopathy. SOFT TISSUE/ABDOMINAL WALL: Fat-containing inguinal hernias bilaterally. IMPRESSION: 1. No acute intra-abdominal or intrapelvic process. 2. Colonic diverticulosis and other incidental findings as described above.
[2022-02-18 22:40] LABS: Albumin 4.2 g/dL (3.5-5.0); Calcium 8.3 mg/dL (8.4-10.2); Total Bilirubin 0.5 mg/dL (0.2-1.3); Total Protein 7.1 g/dL (6.3-8.2)
[2022-02-18] MEDS ORDERED: ORPHENADRINE 30 MG/ML 2 ML VIAL IVP STA (22:56)
[2022-02-18 23:13] VITALS: BP 151/86; PULSE 100; RESP 20; TEMP 98.1
== END 2022-02-18 23:55 | disposition home or self-care (01) ==
LOC: EC 20:25
DX: R10.2 Pelvic and perineal pain (principal); M54.9 Dorsalgia, unspecified; G89.29 Other chronic pain; K57.30 Diverticulosis of large intestine without perforation or abscess without bleeding; M19.90 Unspecified osteoarthritis, unspecified site; E07.9 Disorder of thyroid, unspecified; Z79.891 Long term (current) use of opiate analgesic; Z79.890 Hormone replacement therapy; Z79.82 Long term (current) use of aspirin; Z88.8 Allergy status to other drugs, medicaments and biological substances; Z88.5 Allergy status to narcotic agent
CPT/HCPCS: 36415; 80053; 83605; 85025; 81001; 87086; 74176; 99284; 96374; 96375 ×3; 96361 ×3; J2270; J2360; J2405; J1885

== ENCOUNTER → 2022-02-27 | Outpatient (CLI) | payer MEDICARE ==
--- NOTE | 2022-02-27 11:17 | US ---
EXAMINATION TYPE: US groin RT DATE OF EXAM: 02/27/2022 COMPARISON: CT abdomen and pelvis 9 days ago CLINICAL HISTORY: R10.2, N50.811 RIGHT TESTICULAR PAIN. Pt states right groin pain No abnormality visualized within pt's area of pain/ valsalva maneuvers were obtained Target ultrasound right groin shows no worrisome solid or cystic mass or abnormal fluid collection. N o hernia defect seen on dynamic imaging. Findings correlate with recent CT study. IMPRESSION: As above.
--- NOTE | 2022-02-27 11:18 | US ---
EXAMINATION TYPE: US scrotum with doppler. Grayscale and color Doppler Duplex imaging performed of t he scrotum. DATE OF EXAM: 02/27/2022 COMPARISON: NONE CLINICAL HISTORY: R10.2, N50.811 RIGHT TESTICULAR PAIN. Pt states pain to groin and testicles, more o n right side x 1 week EXAM MEASUREMENTS: TESTICLES: Right Testicle: 3.3 x 1.8 x 2.5 cm Left Testicle: 3.6 x 2.0 x 3.0 cm EPIDIDYMIS HEAD: Right Epididymis: 1.0 cm Left Epididymis: 1.7 cm Doppler performed to assess for testicular vascularity; good bilateral color flow and waveforms are s een. Presence of hydroceles: No Presence of varicoceles: No Testicles appeared wnl Comparison views show symmetric blood flow to bilateral testicles. IMPRESSION: Unremarkable study.
== END | disposition home or self-care (01) ==
LOC: RADUSWWP 10:01
PROVIDERS: ATTEND Family Medicine
DX: R10.2 Pelvic and perineal pain (principal); N50.811 Right testicular pain
CPT/HCPCS: 76870; 93975

== ENCOUNTER → 2022-04-04 | Outpatient (CLI) | payer MEDICARE | END | disposition home or self-care (01) | LOC: LABWHC1 11:42 | PROVIDERS: ATTEND Surgery Plastic and Reconstructive Surgery | DX: Z01.89 Encounter for other specified special examinations (principal); I44.4 Left anterior fascicular block; R94.31 Abnormal electrocardiogram [ECG] [EKG] | CPT/HCPCS: 36415; 93005 ==

== ENCOUNTER 2022-04-15 11:23 | Emergency (ER) | payer MEDICARE ==
[2022-04-15] MEDS ORDERED: SODIUM CHLORIDE 0.9% 1,000 ML IV STA ×2 (11:58)
--- NOTE | 2022-04-15 12:24 | ED ---
General Adult HPI - General Chief complaint: Anxiety Stated complaint: Anxiety Time Seen by Provider: 04/15/22 11:36 Source: patient, RN notes reviewed Mode of arrival: ambulatory Limitations: no limitations - History of Present Illness Initial comments: 57-year-old male presents emergency Department with chief complaint of possible anxiety, palpitations. Patient states that he's had 3 separate occasions where he feels like he is having a panic anxiety attack. Patient states he never had any issues like this in the past. He states that he was off his thyroid medication because he was told to stop it while he was on steroids. Patient states that he recently did restart it but states has not helped. Patient denies any fevers chills cough congestion. Patient states that he recently found out he has bilateral inguinal hernia which is scheduled for repair he states he had an outpatient EKG and which was told it was abnormal and his been referred to cardiology. He denies any other new medications. - Related Data Home Medications Medication Instructions Recorded Confirmed Cyclobenzaprine [Flexeril] 10 mg PO BID PRN 08/11/16 09/07/21 Levothyroxine Sodium [Levoxyl] 300 mcg PO [id number] 01/13/19 09/07/21 Aspirin [Aspirin EC] 1,500 mg PO DAILY PRN 09/02/21 09/07/21 Calcium Citrate 500 mg PO DAILY 09/02/21 09/07/21 Folic Acid 1 mg PO DAILY 09/02/21 09/07/21 Gabapentin [Neurontin] 300 mg PO DAILY 09/02/21 09/07/21 HYDROcodone/APAP 7.5-325MG [[place] 1 tab PO Q6HR PRN 09/02/21 09/07/21 7.5-325] Multivit-Min/Folic/Vit K/Lycop 1 each PO DAILY 09/02/21 09/07/21 [Men's Multivitamin Tablet] metHOTREXate sodium [Methotrexate] 20 mg PO SA 09/02/21 09/07/21 Previous Rx's Medication Instructions Recorded Naproxen [Naprosyn] 375 mg PO Q12HR PRN #20 tablet 02/18/22 LORazepam [Ativan] 1 mg PO TID PRN 3 Days #9 tab 04/15/22 Orphenadrine [Norflex] 100 mg PO Q12H #14 tab 04/15/22 Allergies Allergy/AdvReac Type Severity Reaction Status Date / Time primidone AdvReac emotional, Verified 04/15/22 11:36 depressed tramadol AdvReac States " Verified 04/15/22 11:36 feels overwhelmed" Review of Systems ROS Statement: Those systems with pertinent positive or pertinent negative responses have been documented in the HPI. ROS Other: All systems not noted in ROS Statement are negative. Past Medical History Past Medical History: Cancer, Musculoskeletal Disorder, Osteoarthritis (OA), Prostate Disorder, Rheumatoid Arthritis (RA), Thyroid Disorder Additional Past Medical History / Comment(s): Hx heart murmur as child, DDD w/ fusion L1-2, Freq UTI'S, BPH - recent AB Rx, Hx EPIDIDYMITIS, hx thyroid cancer. "Pre-diabetes." Neuropathy BLE. Hx pos TB w/ tx. History of Any Multi-Drug Resistant Organisms: None Reported Past Surgical History: Back Surgery, Breast Surgery, Hernia Repair, Orthopedic Surgery, Tonsillectomy Additional Past Surgical History / Comment(s): 12/28/15 Completion thyroidectomy, Other surgical hx: Partial thyroidectomy, rhizotomy, back fusion, pain clinic procedures, aaron knee arthroscopy, left ankle surgery, left breast lumpectomy, BMT, AARON axillary lymph node removed, Rt mastectomy 08/2016, COLONOSCOPY, abd hernia Past Anesthesia/Blood Transfusion Reactions: Previous Problems w/ Anesthesia, Postoperative Nausea & Vomiting (PONV) Additional Past Anesthesia/Blood Transfusion Reaction / Comment(s): Hx trouble urinating post-op, states he "comes out mad and angry", last two surgeries had no problems urinating. No problems with aggression after MAC anesthesia. Past Psychological History: No Psychological Hx Reported Smoking Status: Never smoker Past Alcohol Use History: None Reported Past Drug Use History: None Reported - Past Family History Father Family Medical History: Cancer Additional Family Medical History / Comment(s): Lung cancer, w/ Metastatic cancer-is ill with this now and is in his early 80's Mother Family Medical History: Cancer Additional Family Medical History / Comment(s): stomach cancer Sister(s) Family Medical History: Cancer Additional Family Medical History / Comment(s): melanoma cancer; 1 other sister w/ breast cancer, cigar sorter cancer General Exam Limitations: no limitations General appearance: alert, in no apparent distress Head exam: Present: atraumatic, normocephalic, normal inspection Eye exam: Present: normal appearance, PERRL, EOMI. Absent: scleral icterus, conjunctival injection, periorbital swelling ENT exam: Present: normal exam, normal oropharynx, mucous membranes moist Neck exam: Present: normal inspection, full ROM. Absent: tenderness, meningismus, lymphadenopathy Respiratory exam: Present: normal lung sounds bilaterally. Absent: respiratory distress, wheezes, rales, rhonchi, stridor Cardiovascular Exam: Present: regular rate, normal rhythm, normal heart sounds. Absent: systolic murmur, diastolic murmur, rubs, gallop, clicks GI/Abdominal exam: Present: soft, normal bowel sounds. Absent: distended, tenderness, guarding, rebound, rigid Neurological exam: Present: alert, oriented X3, CN II-XII intact, reflexes normal. Absent: motor sensory deficit Course Vital Signs 04/15/22 04/15/22 04/15/22 11:34 13:02 13:49 Temperature 98.2 F Pulse Rate 98 85 84 Respiratory 20 17 17 Rate Blood Pressure 135/94 141/96 131/95 O2 Sat by Pulse 96 96 96 Oximetry Medical Decision Making - Medical Decision Making Was pt. sent in by a medical professional or institution (, PA, RUCHING MACHINE OPERATOR, urgent care, hospital, or retirement...) When possible be specific @ -No Did you speak to anyone other than the patient for history (EMS, parent, family, police, friend...)? What history was obtained from this source @ -No Did you review nursing and triage notes (agree or disagree)? Why? @ -I reviewed and agree with nursing and triage notes Were old charts reviewed (outside hosp., previous admission, EMS record, old EKG, old radiological studies, urgent care reports/EKG's, retirement records)? Report findings @ -No old charts were reviewed Differential Diagnosis (chest pain, altered mental status, abdominal pain women, abdominal pain men, vaginal bleeding, weakness, fever, dyspnea, syncope, headache, dizziness, GI bleed, back pain, seizure, CVA, palpatations, mental health)? @ -Anxiety, palpitations, dehydration, hypothyroidism, this list is not all inconclusive. EKG interpreted by me (3pts min.). @ -EKG performed at 12:54 sinus rhythm rate of 86 [place] 168 QRS 93 QT/QTC 363/407 X-rays interpreted by me (1pt min.). @ -Chest x-ray shows no acute process CT interpreted by me (1pt min.). @ -None done U/S interpreted by me (1pt. min.). @ -None done What testing was considered but not performed or refused? (CT, X-rays, U/S, labs)? Why? @ -None What meds were considered but not given or refused? Why? @ -None Did you discuss the management of the patient with other professionals (professionals i.e. , PA, RUCHING MACHINE OPERATOR, lab, RT, psych nurse, nursing home social worker, solar energy consultant and designer, teacher, training systems officer, community case manager)? Give summary @ -No Was smoking cessation discussed for >3mins.? @ -No Was critical care preformed (if so, how long)? @ -No Were there social determinants of health that impacted care today? How? (Homelessness, low income, unemployed, alcoholism, drug addiction, transportation, low edu. Level, literacy, decrease access to med. care, residential, rehab)? @ -No Was there de-escalation of care discussed even if they declined (Discuss DNR or withdrawal of care, Hospice)? DNR status @ -No What co-morbidities impacted this encounter? (DM, HTN, Smoking, COPD, CAD, Can cer, CVA, ARF, Chemo, Hep., AIDS, mental health diagnosis, sleep apnea, morbid obesity)? @ -Anxiety, hypertension Was patient admitted / discharged? Hospital course, mention meds given and route, prescriptions, significant lab abnormalities, going to OR and other pertinent info. @ -Discharge patient for workup patient does have underlying hyperthyroidism recently started his medication. Patient was given 2 L of fluid and feels somewhat better. He still complains of chronic back issues and an in which she is still having spasms. Patient states his entire somewhat improved. Patient denies any red flag symptoms. Patient advised to follow-up return parameters were discussed. Undiagnosed new problem with uncertain prognosis? @ -No Drug Therapy requiring intensive monitoring for toxicity (Heparin, Nitro, Insulin, Cardizem)? @ -No Were any procedures done? @ -No Diagnosis/symptom? @ -Anxiety Acute, or Chronic, or Acute on Chronic? @ -Acute Uncomplicated (without systemic symptoms) or Complicated (systemic symptoms)? @ -Uncomplicated Side effects of treatment? @ -No Exacerbation, Progression, or Severe Exacerbation? @ -No Poses a threat to life or bodily function? How? (Chest pain, [place], [place], pneumonia, PE, COPD, DKA, ARF, appy, cholecystitis, CVA, Diverticulitis, Homicidal, Suicidal, threat to staff... and all critical care pts) @ -No Diagnosis/symptom? @ -Back pain Acute, or Chronic, or Acute on Chronic? @ -Acute on chronic Uncomplicated (without systemic symptoms) or Complicated (systemic symptoms)? @ -Uncomplicated Side effects of treatment? @ -none Exacerbation, Progression, or Severe Exacerbation] @ -no Poses a threat to life or bodily function? @ -no - Lab Data Result diagrams: 04/15/22 12:13 04/15/22 12:13 Lab Results 04/15/22 04/15/22 04/15/22 Range/Units 12:13 12:13 12:13 WBC 8.5 (3.8-10.6) k/uL RBC 5.11 (4.30-5.90) m/uL Hgb 16.3 (13.0-17.5) gm/dL Hct 45.9 (39.0-53.0) % MCV 89.9 (80.0-100.0) fL MCH 31.9 (25.0-35.0) pg MCHC 35.4 (31.0-37.0) g/dL RDW 13.9 (11.5-15.5) % Plt Count 279 (150-450) k/uL MPV 8.0 Neutrophils % 68 % Lymphocytes % 24 % Monocytes % 4 % Eosinophils % 1 % Basophils % 1 % Neutrophils # 5.8 (1.3-7.7) k/uL Lymphocytes # 2.1 (1.0-4.8) k/uL Monocytes # 0.3 (0-1.0) k/uL Eosinophils # 0.1 (0-0.7) k/uL Basophils # 0.1 (0-0.2) k/uL PT 12.0 (9.0-12.0) sec INR 1.2 H (<1.2) APTT 22.8 (22.0-30.0) sec Sodium (137-145) mmol/L Potassium (3.5-5.1) mmol/L Chloride (98-107) mmol/L Carbon Dioxide (22-30) mmol/L Anion Gap mmol/L BUN (9-20) mg/dL Creatinine (0.66-1.25) mg/dL Est GFR (CKD-EPI)AfAm (>60 ml/min/1.73 sqM) Est GFR (CKD-EPI)NonAf (>60 ml/min/1.73 sqM) Glucose (74-99) mg/dL Calcium (8.4-10.2) mg/dL Magnesium (1.6-2.3) mg/dL Total Bilirubin (0.2-1.3) mg/dL AST (17-59) U/L ALT (4-49) U/L Alkaline Phosphatase (38-126) U/L Troponin I (0.000-0.034) ng/mL Total Protein (6.3-8.2) g/dL Albumin (3.5-5.0) g/dL TSH (0.465-4.680) mIU/L Free T4 (0.78-2.19) ng/dL Urine Color Yellow Urine Appearance Clear (Clear) Urine pH 6.5 (5.0-8.0) Ur Specific [place] 1.016 (1.001-1.035) Urine Protein 1+ H (Negative) Urine Glucose (UA) Negative (Negative) Urine Ketones Negative (Negative) Urine Blood Negative (Negative) Urine Nitrite Negative (Negative) Urine Bilirubin Negative (Negative) Urine Urobilinogen <2.0 (<2.0) mg/dL Ur Leukocyte Esterase Small H (Negative) Urine RBC 1 (0-5) /hpf Urine WBC 7 H (0-5) /hpf Ur Squamous Epith Cells <1 (0-4) /hpf Hyaline Casts 3 H (0-2) /lpf Urine Mucus Few H (None) /hpf 04/15/22 04/15/22 Range/Units 12:13 12:13 WBC (3.8-10.6) k/uL RBC (4.30-5.90) m/uL Hgb (13.0-17.5) gm/dL Hct (39.0-53.0) % MCV (80.0-100.0) fL MCH (25.0-35.0) pg MCHC (31.0-37.0) g/dL RDW (11.5-15.5) % Plt Count (150-450) k/uL MPV Neutrophils % % Lymphocytes % % Monocytes % % Eosinophils % % Basophils % % Neutrophils # (1.3-7.7) k/uL Lymphocytes # (1.0-4.8) k/uL Monocytes # (0-1.0) k/uL Eosinophils # (0-0.7) k/uL Basophils # (0-0.2) k/uL PT (9.0-12.0) sec INR (<1.2) APTT (22.0-30.0) sec Sodium 137 (137-145) mmol/L Potassium 4.1 (3.5-5.1) mmol/L Chloride 104 (98-107) mmol/L Carbon Dioxide 23 (22-30) mmol/L Anion Gap 10 mmol/L BUN 12 (9-20) mg/dL Creatinine 1.34 H (0.66-1.25) mg/dL Est GFR (CKD-EPI)AfAm 67 (>60 ml/min/1.73 sqM) Est GFR (CKD-EPI)NonAf 58 (>60 ml/min/1.73 sqM) Glucose 153 H (74-99) mg/dL Calcium 8.7 (8.4-10.2) mg/dL Magnesium 2.0 (1.6-2.3) mg/dL Total Bilirubin 1.5 H (0.2-1.3) mg/dL AST 50 (17-59) U/L ALT 50 H (4-49) U/L Alkaline Phosphatase 64 (38-126) U/L Troponin I <0.012 (0.000-0.034) ng/mL Total Protein 8.0 (6.3-8.2) g/dL Albumin 4.8 (3.5-5.0) g/dL TSH 89.900 H (0.465-4.680) mIU/L Free T4 0.86 (0.78-2.19) ng/dL Urine Color Urine Appearance (Clear) Urine pH (5.0-8.0) Ur Specific [place] (1.001-1.035) Urine Protein (Negative) Urine Glucose (UA) (Negative) Urine Ketones (Negative) Urine Blood (Negative) Urine Nitrite (Negative) Urine Bilirubin (Negative) Urine Urobilinogen (<2.0) mg/dL Ur Leukocyte Esterase (Negative) Urine RBC (0-5) /hpf Urine WBC (0-5) /hpf Ur Squamous Epith Cells (0-4) /hpf Hyaline Casts (0-2) /lpf Urine Mucus (None) /hpf Disposition Clinical Impression: Acute anxiety, Back pain, Palpitations Disposition: HOME SELF-CARE Condition: Stable Instructions (If sedation given, give patient instructions): Back Pain (ED) Additional Instructions: Please return to the Emergency Department if symptoms worsen or any other concerns. Prescriptions: LORazepam [Ativan] 1 mg PO TID PRN 3 Days #9 tab PRN Reason: Anxiety Orphenadrine [Norflex] 100 mg PO Q12H #14 tab Is patient prescribed a controlled substance at d/c from ED?: No Referrals: Santi Luque DO [Primary Care Provider] - 1-2 days Time of Disposition: 14:43
[2022-04-15 12:29] LABS: Appearance,Urine Clear (Clear); Bilirubin,Urine Negative (Negative); Blood,Urine Negative (Negative); Color,Urine Yellow; Glucose,Urine (UA) Negative (Negative); Hyaline Casts,Urine 3 /lpf (0-2); Ketones,Urine Negative (Negative); Leukocyte Esterase,Urine Small (Negative); Mucus,Urine Few /hpf; Nitrite,Urine Negative (Negative); PH, Urine 6.5 (5.0-8.0); Protein,Urine 1+ (Negative); RBC,Urine 1 /hpf (0-5); Specific Gravity,Urine 1.016 (1.001-1.035); Squamous Epithelial Cell,Urine <1 /hpf (0-4); Urobilinogen,Urine <2.0 mg/dL (<2.0); WBC,Urine 7 /hpf (0-5)
--- NOTE | 2022-04-15 12:53 | XR ---
EXAMINATION TYPE: XR chest 2V DATE OF EXAM: 04/15/2022 COMPARISON: Chest CT July 19, 2016 HISTORY: Chest pain. TECHNIQUE: Frontal and lateral views of the chest are obtained. FINDINGS: Low lung volumes are present. There is no suspicious new focal air space opacity, pleural e ffusion, or pneumothorax seen. The cardiac silhouette size is mildly enlarged. The osseous struct ures are intact. IMPRESSION: Mild cardiomegaly without acute pulmonary process.
[2022-04-15 12:54] LABS: INR 1.2 (<1.2); Partial Thromboplastin Time 22.8 sec (22.0-30.0)
[2022-04-15 12:58] LABS: Basophils # (A) 0.1 k/uL (0-0.2); Basophils % (A) 1 %; Eosinophils # (A) 0.1 k/uL (0-0.7); Eosinophils % (A) 1 %; HCT 45.9 % (39.0-53.0); HGB 16.3 gm/dL (13.0-17.5); Lymphocytes # (A) 2.1 k/uL (1.0-4.8); Lymphocytes % (A) 24 %; MCH 31.9 pg (25.0-35.0); MCHC 35.4 g/dL (31.0-37.0); MCV 89.9 fL (80.0-100.0); Monocytes # (A) 0.3 k/uL (0-1.0); Monocytes % (A) 4 %; Neutrophils # (A) 5.8 k/uL (1.3-7.7); Neutrophils % (A) 68 %; Platelet Count 279 k/uL (150-450); RBC 5.11 m/uL (4.30-5.90); RDW 13.9 % (11.5-15.5); WBC 8.5 k/uL (3.8-10.6)
[2022-04-15 12:59] LABS: ALT 50 U/L (4-49); African American GFR (CKD) 67 (>60 ml/min/1.73 sqM); Albumin 4.8 g/dL (3.5-5.0); Anion Gap 10 mmol/L; Blood Urea Nitrogen 12 mg/dL (9-20); Calcium 8.7 mg/dL (8.4-10.2); Carbon Dioxide 23 mmol/L (22-30); Chloride 104 mmol/L (98-107); Glucose 153 mg/dL (74-99); Non-African American GFR(CKD) 58 (>60 ml/min/1.73 sqM); Sodium 137 mmol/L (137-145); Total Bilirubin 1.5 mg/dL (0.2-1.3)
[2022-04-15 13:09] LABS: AST 50 U/L (17-59); Alkaline Phosphatase 64 U/L (38-126); Potassium 4.1 mmol/L (3.5-5.1)
[2022-04-15 14:21] LABS: T4, Free (Free Thyroxine) 0.86 ng/dL (0.78-2.19)
[2022-04-15 14:38] VITALS: BP 137/98; PULSE 82; RESP 16; TEMP 98
== END 2022-04-15 14:56 | disposition home or self-care (01) ==
LOC: EC 11:23
DX: F41.9 Anxiety disorder, unspecified (principal); M54.9 Dorsalgia, unspecified; R00.2 Palpitations; E07.9 Disorder of thyroid, unspecified; M19.90 Unspecified osteoarthritis, unspecified site; Z79.82 Long term (current) use of aspirin; Z79.899 Other long term (current) drug therapy; Z79.890 Hormone replacement therapy; Z88.0 Allergy status to penicillin; Z88.8 Allergy status to other drugs, medicaments and biological substances
CPT/HCPCS: 36415; 93005; 84439; 80053; 84443; 83735; 84484; 85025; 85610; 85730; 81001; 71046; 99284; 96374; 96361 ×3; J3360

== ENCOUNTER 2022-06-02 05:37 | Day surgery (SDC) | payer MEDICARE ==
[2022-05-31 12:24] VITALS: BMI 32.1
[~2022-06-02 05:37] MED LIST changes: +HEPARIN SODIUM,PORCINE/PF 5,000 UNIT/0.5 ML SYRINGE SQ PRN; -LACTATED RINGERS 1,000 ML IV SCH; -LIDOCAINE 1% (10MG/ML) FOR IV START INTRADERMA PRN
[2022-06-02] MEDS ORDERED: MIDAZOLAM 2 MG/2 ML VIAL IV PRN (06:08)
[2022-06-02] MEDS ORDERED: HYDROmorphone 0.5 MG/0.5 ML SYRINGE IVP PRN (06:08)
[2022-06-02] MEDS ORDERED: LIDOCAINE 1% (10MG/ML) FOR IV START INTRADERMA PRN (06:08)
[2022-06-02] MEDS ORDERED: ONDANSETRON 4 MG/2 ML VIAL IVP ONE (06:08)
[2022-06-02] MEDS ORDERED: LACTATED RINGERS 1,000 ML IV SCH (06:08)
[2022-06-02] MEDS ORDERED: DEXAMETHASONE SOD PHOSPHATE 4 MG/ML 1 ML VIAL IV ONE (06:08)
[2022-06-02] MEDS ORDERED: GABAPENTIN 300 MG CAP PO STA (06:44)
[2022-06-02] MEDS ORDERED: TAMSULOSIN 0.4 MG CAP.ER.24H PO STA (06:44)
[2022-06-02] MEDS ORDERED: ACETAMINOPHEN TAB 500 MG TAB PO STA (06:44)
--- NOTE | 2022-06-02 06:44 | P.GSHP ---
History of Present Illness H&P Date: 06/02/22 CHIEF COMPLAINT: Inguinal hernia, right. HISTORY OF PRESENT ILLNESS: The patient is a 57-year-old male who presents with a history of swelling and pain along the right groin. He had additional studies demonstrating possible bilateral inguinal hernias. He has noted increased swelling including pain of the area. Now he presents for repair of his inguinal hernia. PAST MEDICAL HISTORY: Please see list. PAST SURGICAL HISTORY: Please see list. MEDICATIONS: Please see list. ALLERGIES: Please see list. SOCIAL HISTORY: No illicit drug use FAMILY HISTORY: No reports of Crohn disease or ulcerative colitis. REVIEW OF ORGAN SYSTEMS: CONSTITUTIONAL: No reports of fevers or chills. No reports of weight loss despite prior attempts. GI: Denies any blood in stools or constipation. PHYSICAL EXAM: VITAL SIGNS: Stable GENERAL: Well-developed pleasant in no acute distress. HEENT: No scleral icterus. Extraocular movements grossly intact. Moist buccal mucosa. NECK: Supple without lymphadenopathy. CHEST: Unlabored respirations. Equal bilateral excursions. CARDIOVASCULAR: Regular rate and rhythm. Distal 2+ pulses. ABDOMEN: Soft, nondistended. No peritoneal signs. Swelling along the right groin MUSCULOSKELETAL: No clubbing, cyanosis, or edema. STUDIES: CT of the pelvis demonstrating bilateral inguinal hernias. ASSESSMENT: 1. Inguinal hernia, right initial and symptomatic. 2. Abnormal computed tomography scan of bilateral inguinal hernias PLAN: 1. Recommend proceeding robotic inguinal repair with mesh with possible bilateral approach. 2. Benefits and risks of surgical intervention was discussed including possibility of open technique. 3. DVT prophylaxis. 4. Antibiotic prophylaxis. 5. Non narcotic pain management including abdominal wall block described 6. Blood sugar glucose described. 7. Weight loss management described. Past Medical History Past Medical History: Cancer, Diabetes Mellitus, Hypertension, Musculoskeletal Disorder, Osteoarthritis (OA), Prostate Disorder, Rheumatoid Arthritis (RA), Thyroid Disorder Additional Past Medical History / Comment(s): Hx heart murmur as child, DDD w/ fusion L1-2, Freq UTI'S, BPH , hx thyroid cancer. "Pre-diabetes." Neuropathy BLE. Hx pos TB w/ tx. History of Any Multi-Drug Resistant Organisms: None Reported Past Surgical History: Back Surgery, Breast Surgery, Hernia Repair, Orthopedic Surgery, Tonsillectomy Additional Past Surgical History / Comment(s): 12/28/15 Completion thyroidectomy, Other surgical hx: Partial thyroidectomy, rhizotomy, back fusion, pain clinic procedures, aaron knee arthroscopy, left ankle surgery, left breast lumpectomy, BMT, AARON axillary lymph node removed, Rt mastectomy 08/2016, COLONOSCOPY, abd hernia Past Anesthesia/Blood Transfusion Reactions: Previous Problems w/ Anesthesia, Postoperative Nausea & Vomiting (PONV) Additional Past Anesthesia/Blood Transfusion Reaction / Comment(s): Hx trouble urinating post-op, states he "comes out mad and angry", last two surgeries had no problems urinating. No problems with aggression after MAC anesthesia. Smoking Status: Never smoker - Past Family History Father Family Medical History: Cancer Additional Family Medical History / Comment(s): Lung cancer, w/ Metastatic cancer- Mother Family Medical History: Cancer Additional Family Medical History / Comment(s): stomach cancer Sister(s) Family Medical History: Cancer Additional Family Medical History / Comment(s): melanoma cancer; 1 other sister w/ breast cancer, management scientist cancer Medications and Allergies Home Medications Medication Instructions Recorded Confirmed Type Cyclobenzaprine [Flexeril] 10 mg PO BID PRN 08/11/16 06/02/22 History Levothyroxine Sodium [Levoxyl] 225 mcg PO DAILY 01/13/19 06/02/22 History Calcium Citrate 500 mg PO DAILY 09/02/21 06/02/22 History Folic Acid 1 mg PO DAILY 09/02/21 06/02/22 History Gabapentin [Neurontin] 300 mg PO HS 09/02/21 06/02/22 History HYDROcodone/APAP 7.5-325MG [[place] 1 tab PO Q6HR PRN 09/02/21 06/02/22 History 7.5-325] Multivit-Min/Folic/Vit K/Lycop 1 each PO DAILY 09/02/21 06/02/22 History [Men's Multivitamin Tablet] metHOTREXate sodium [Methotrexate] 20 mg PO SA 09/02/21 06/02/22 History LORazepam [Ativan] 1 mg PO TID PRN 3 Days #9 tab 04/15/22 06/02/22 Rx Losartan Potassium [Cozaar] 50 mg PO HS 05/31/22 06/02/22 History Metoprolol Succinate [Toprol XL] 50 mg PO DAILY 05/31/22 06/02/22 History metFORMIN HCL 500 mg PO 1700 05/31/22 06/02/22 History Allergies Allergy/AdvReac Type Severity Reaction Status Date / Time primidone AdvReac emotional, Verified 06/02/22 06:32 depressed tramadol AdvReac States " Verified 06/02/22 06:32 feLT overwhelmed" [facility] - Exam Vital Signs Temp Pulse Resp BP Pulse Ox 98.4 F 100 16 136/77 98 06/02/22 06:30 06/02/22 06:30 06/02/22 06:30 06/02/22 06:30 06/02/22 06:30
[2022-06-02 07:13] LABS: Glucose,Whole Blood 105 mg/dL (70-110)
[2022-06-02 07:20] LABS: Basophils # (A) 0.1 k/uL (0-0.2); Basophils % (A) 1 %; Eosinophils # (A) 0.2 k/uL (0-0.7); Eosinophils % (A) 3 %; HCT 43.2 % (39.0-53.0); HGB 14.8 gm/dL (13.0-17.5); Lymphocytes # (A) 2.2 k/uL (1.0-4.8); Lymphocytes % (A) 27 %; MCH 30.8 pg (25.0-35.0); MCHC 34.4 g/dL (31.0-37.0); MCV 89.6 fL (80.0-100.0); Monocytes # (A) 0.5 k/uL (0-1.0); Monocytes % (A) 6 %; Neutrophils # (A) 4.8 k/uL (1.3-7.7); Neutrophils % (A) 60 %; Platelet Count 301 k/uL (150-450); RBC 4.82 m/uL (4.30-5.90); RDW 12.2 % (11.5-15.5)
[2022-06-02] MEDS ORDERED: BUPIVACAIN-EPI 0.25%-1:200,000 30 ML VIAL SQ ONE ×2 (07:23→08:12)
[2022-06-02 07:31] LABS: Potassium 3.9 mmol/L (3.5-5.1)
[2022-06-02 07:32] LABS: ALT 49 U/L (4-49); AST 30 U/L (17-59); African American GFR (CKD) >90 (>60 ml/min/1.73 sqM); Albumin 4.4 g/dL (3.5-5.0); Alkaline Phosphatase 61 U/L (38-126); Anion Gap 11 mmol/L; Blood Urea Nitrogen 13 mg/dL (9-20); Calcium 9.1 mg/dL (8.4-10.2); Carbon Dioxide 25 mmol/L (22-30); Chloride 105 mmol/L (98-107); Glucose 107 mg/dL (74-99); Non-African American GFR(CKD) >90 (>60 ml/min/1.73 sqM); Sodium 141 mmol/L (137-145); Total Bilirubin 1.2 mg/dL (0.2-1.3); Total Protein 7.2 g/dL (6.3-8.2)
--- NOTE | 2022-06-02 07:34 | P.ANPRN ---
Procedure Note - Anesthesia - Nerve Block Performed Bilateral Transversus Abdominis Single Time Out Performed: Yes ([id number]) Date of Procedure: 06/02/22 Procedure Start Time: 06:54 Procedure Stop Time: 07:00 Location of Patient: PreOp Indication: Acute Post-Operative Pain, Dx/Pain Location, Requested by Surgeon Sedation Type: Sedate with meaningful contact maintained Preparation: Sterile Prep Position: Supine Catheter: None Needle Types: [place] Needle Gauge: 21 Ultrasound used to visualize needle placement: Yes Ultrasound used to observe medication spread: Yes Injectate: Other (see comment) (20ml 0.2% Ropivacaine each side)
[2022-06-02] MEDS ORDERED: LIDOCAINE 2% INJ 20 MG/ML (2 ML VIAL) ONE (07:45)
[2022-06-02] MEDS ORDERED: ROCURONIUM 10 MG/ML (5 ML VIAL) IV ONE (07:45)
[2022-06-02] MEDS ORDERED: fentaNYL (PF) 50 MCG/ML 2 ML AMP ONE (07:45)
[2022-06-02] MEDS ORDERED: ROPIVACAINE 5 MG/ML 30 ML VIAL ONE (07:45)
[2022-06-02] MEDS ORDERED: HYDROmorphone (PF) 1 MG/ML ONE (07:45)
[2022-06-02] MEDS ORDERED: MIDAZOLAM 2 MG/2 ML VIAL ONE (07:45)
[2022-06-02] MEDS ORDERED: PROPOFOL 10 MG/ML 20 ML VIAL IV ONE (07:45)
[2022-06-02] MEDS ORDERED: SUCCINYLCHOLINE CHLORIDE 200 MG/10 ML VIAL IV ONE (07:45)
[2022-06-02] MEDS ORDERED: GLYCOPYRROLATE 0.2 MG/ML 2 ML VIAL ONE (07:45)
[2022-06-02] MEDS ORDERED: NEOSTIGMINE 1 MG/ML 10 ML VIAL ONE (07:45)
[2022-06-02] MEDS ORDERED: LACTATED RINGERS 1,000 ML IV ONE (09:45)
[2022-06-02 10:14] VITALS: TEMP 97.6
[2022-06-02 10:33] LABS: Glucose,Whole Blood 164 mg/dL (70-110)
[2022-06-02] MEDS ORDERED: HYDROmorphone 0.5 MG/0.5 ML SYRINGE IVP ONE (10:44)
[2022-06-02] MEDS ORDERED: TAMSULOSIN 0.4 MG CAP.ER.24H PO PRN (10:54)
[2022-06-02] MEDS ORDERED: IBUPROFEN 600 MG TAB PO ONE (11:51)
[2022-06-02 12:12] VITALS: RESP 16
[2022-06-02] MEDS ORDERED: HYDROcodone/APAP 10-325MG 1 EACH TAB ONE (12:31)
[2022-06-02] MEDS ORDERED: HYDROcodone/APAP 10-325MG 1 EACH TAB PO ONE (12:33)
[2022-06-02 12:35] VITALS: BP 118/75; PULSE 95
--- NOTE | 2022-06-06 10:20 | P.OP ---
Date of Procedure: 06/02/22 Description of Procedure: SURGEON: XENIA VALERIO MD PREOPERATIVE DIAGNOSES: 1. Bilateral inguinal hernias, initial 2. Obesity due to excess calories, BMI 31.9 3. Chronic pain syndrome 4. Diabetes type 2, uyr-dhnrxxz-rdekoirct 5. Hypothyroidism 6. Rheumatoid arthritis 7. Hypertensive heart disease 8. Neuropathy 9. Generalized anxiety disorder POSTOPERATIVE DIAGNOSES: 1. Bilateral inguinal hernias, initial 2. Obesity due to excess calories, BMI 31.9 3. Chronic pain syndrome 4. Diabetes type 2, [id number]-wigsxbcly 5. Hypothyroidism 6. Rheumatoid arthritis 7. Hypertensive heart disease 8. Neuropathy 9. Generalized anxiety disorder 10. Left subfascial inguinal lipoma, 6 cm OPERATION: 1. Robotic-assisted da Lexii Xi laparoscopic reduction repair of initial incarcerated left indirect inguinal hernia with mesh, 11.[address] 2. Robotic-assisted da Lexii Xi laparoscopic reduction repair of initial incarcerated right indirect inguinal hernia with mesh, 11.[address] 3. Excision of left inguinal subfascial lipoma, 6 cm ANESTHESIA: General with local anesthetic, regional block ESTIMATED BLOOD LOSS: 5 mL. SPECIMENS: 1. Incarcerated left inguinal hernia sac with lipoma 2. Incarcerated right inguinal hernia sac COMPLICATIONS: None. FINDINGS: 1. Incarcerated left inguinal hernia over 4 x 4 cm, incorporating inguinal lipoma 2. Incarcerated right inguinal hernia over 4 x 3 cm 3. Large inguinal subfascial lipoma, 6-cm INDICATIONS: The patient is a 57-year-old male who presents with history of initial bilateral inguinal hernias. He reports changes in bowel habits as a result. Now he presents for definitive surgical intervention. Laparoscopic versus open and robotic approaches were discussed including bilateral approach. Benefits and risks including bleeding, infection, chronic groin pain, sterility were reviewed. Placement of mesh was also described. Informed consent was obtained. DESCRIPTION: In the preoperative area, an abdominal block was placed per anesthesia. The patient was brought to the operating room and initially laid in supine position. The abdomen had been prepped and draped in standard sterile fashion. Ioban draping was also placed. Prior to incision, a timeout protocol was confirmed with surgical team regarding patient's name including procedures to be performed. Initial positioning for the robotic assisted ports were selected 20 cm superior to the target anatomy. A 0 degree 5 mm laparoscopic trocar entry was performed at the left upper quadrant. The abdomen was insufflated to 15 mmHg which he tolerated well. Diagnostic laparoscopy demonstrated no injury to bowel, viscera or mesentery. Next, along the epigastrium, 8 mm robot trocar was placed. An 8-mm robotic trocar was placed under direct visualization at the right upper quadrant. An 8 mm port was placed at the left upper quadrant. All trocars were positioned between 10-cm apart from each other. Another 12-mm laparoscopic trocar was placed at the right lateral upper quadrant. The Tengaged XI robot was primed, draped, prepared for docking along upper abdomen of the patient. The patient was positioned 14 steep Trendelenburg position. I then went to the Tengaged Xi console. The operations administrative assistant was at bedside for exchange of the robot arms and equipment. Attention was brought to the left groin. A very large left inguinal defect was confirmed as the sigmoid colon was reduced from the left groin after direct pressure over the inguinal area was placed by the operations administrative assistant. Next, the left groin defect was measured 4 x 4-cm hernia with the sac extending to the scrotum. A large indirect hernia was confirmed, Nyhus type IV. The left inguinal hernia sac was evaginated whereby the peritoneum was scored using Endo scissors with cautery. As the hernia sac extended into the groin, complete resection of the sac was done. The peritoneal sac of the hernia was stripped. The sac was resected and then passed off for further pathological analysis. The size of the hernia defect was 4 cm x 4 cm with intraoperative films obtained. Subfascial lipoma of 6-cm was resected. Using a 2-0 VLOC non-absorbable, the peritoneal defect of the left inguinal hernia site was closed using a pursestring suture. The defect was found to be completely closed with complete reduction of the left direct inguinal hernia was confirmed. As an onlay, an 11.[address] mesh by STinser was cut in half and entered into the abdominal cavity via the 8 mm trocar. The mesh was tacked to the pelvis using absorbable 2-0 VLOC 9-inch length sutures. Attention was brought to the right groin. A large right inguinal defect was confirmed. Next, the right groin defect was measured 4 x 3-cm hernia. The right inguinal hernia sac was evaginated whereby the peritoneum was scored using Endo scissors with cautery. As the hernia sac extended into the groin, complete resection of the sac was done. The peritoneal sac of the hernia was stripped. The sac was resected and then passed off for further pathological analysis. The size of the hernia defect was 4 cm x 3 cm with intraoperative films obtained. Using non-absorbable 2-0 VLOC, the peritoneal defect of the right inguinal hernia site was closed using a running suture. The defect was found to be completely closed with complete reduction of the right indirect inguinal hernia was confirmed. As an onlay, an 11.[address] mesh by STinser was cut in half and entered into the abdominal cavity via the 8 mm trocar. The mesh was tacked to the pelvis using absorbable 2-0 VLOC 9-inch length sutures. A final endoscopic imaging was obtained. The robot was undocked from the patient's bedside. I then rescrubbed into the case. Insufflation was released from the abdominal cavity and all instruments were removed from the abdominal cavity. Pressure was applied along the left groin. The rest of incisions were reapproximated using 4-0 Monocryl in a running subcuticular fashion. Local anesthetic was placed along the incision including for a bilateral groin block. Incisions were cleansed using dilute hydrogen peroxide. Liquid glue was applied to the skin. At the end of the procedure, the needle, sponge and instrument counts had been verified correct by the assembler surgical garment. The patient had tolerated the procedure well and was taken to the postanesthesia care unit in stable condition. Plan - Discharge Summary Discharge Rx Participant: No New Discharge Prescriptions: New Ibuprofen [Motrin] 600 mg PO Q8HR PRN #30 tab PRN Reason: Pain Acetaminophen Tab [Tylenol Tab] 1,000 mg PO Q6HR PRN #30 tablet PRN Reason: Pain Continue Cyclobenzaprine [Flexeril] 10 mg PO BID PRN PRN Reason: Muscle Spasm Levothyroxine Sodium [Levoxyl] 225 mcg PO DAILY HYDROcodone/APAP 7.5-325MG [[place] 7.5-325] 1 tab PO Q6HR PRN PRN Reason: Pain metHOTREXate sodium [Methotrexate] 20 mg PO SA Metoprolol Succinate [Toprol XL] 50 mg PO DAILY Multivit-Min/Folic/Vit K/Lycop [Men's Multivitamin Tablet] 1 each PO DAILY Calcium Citrate 500 mg PO DAILY Gabapentin [Neurontin] 300 mg PO HS Folic Acid 1 mg PO DAILY LORazepam [Ativan] 1 mg PO TID PRN 3 Days #9 tab PRN Reason: Anxiety metFORMIN HCL 500 mg PO 1700 Losartan Potassium [Cozaar] 50 mg PO HS Discharge Medication List Cyclobenzaprine [Flexeril] 10 mg PO BID PRN 08/11/16 [History] Levothyroxine Sodium [Levoxyl] 225 mcg PO DAILY 01/13/19 [History] Calcium Citrate 500 mg PO DAILY 09/02/21 [History] Folic Acid 1 mg PO DAILY 09/02/21 [History] Gabapentin [Neurontin] 300 mg PO HS 09/02/21 [History] HYDROcodone/APAP 7.5-325MG [[place] 7.5-325] 1 tab PO Q6HR PRN 09/02/21 [History] Multivit-Min/Folic/Vit K/Lycop [Men's Multivitamin Tablet] 1 each PO DAILY 09/02/21 [History] metHOTREXate sodium [Methotrexate] 20 mg PO SA 09/02/21 [History] LORazepam [Ativan] 1 mg PO TID PRN 3 Days #9 tab 04/15/22 [Rx] Losartan Potassium [Cozaar] 50 mg PO HS 05/31/22 [History] Metoprolol Succinate [Toprol XL] 50 mg PO DAILY 05/31/22 [History] metFORMIN HCL 500 mg PO 1700 05/31/22 [History] Acetaminophen Tab [Tylenol Tab] 1,000 mg PO Q6HR PRN #30 tablet 06/02/22 [Rx] Ibuprofen [Motrin] 600 mg PO Q8HR PRN #30 tab 06/02/22 [Rx] Follow up Appointment(s)/Referral(s): Xenia Valerio MD [STAFF PHYSICIAN] - 06/06/22 ( TELEHEALTH - Dr calls you, please confirm your telephone number Please be advised that the office will be closed temporarily from June 05 to June 26. ) Patient Instructions/Handouts: *[facility] - Managing Your Pain After Surgery Without Opioids, *[facility] - (Anesthesia) Discharge Instructions Outpatient Surgery, Laparoscopic Herniorrhaphy (IP), Inguinal Hernia (DC) Activity/Diet/Wound Care/Special Instructions: No lifting for 4 pounds in 4 weeks, July 03 Using antibacterial soap. July shower. No bathtub soaks for 2 weeks, June 16 Wear abdominal binder daily for comfort except for showering. Use ice along incisions for today to prevent swelling. Discharge Disposition: HOME SELF-CARE
== END 2022-06-02 15:00 | disposition home or self-care (01) ==
LOC: OR 05:37
PROVIDERS: ATTEND Surgery Plastic and Reconstructive Surgery
DX: K40.20 Bilateral inguinal hernia, without obstruction or gangrene, not specified as recurrent (principal); G89.18 Other acute postprocedural pain; E11.40 Type 2 diabetes mellitus with diabetic neuropathy, unspecified; F41.1 Generalized anxiety disorder; I10 Essential (primary) hypertension; E03.9 Hypothyroidism, unspecified; G47.33 Obstructive sleep apnea (adult) (pediatric); M06.9 Rheumatoid arthritis, unspecified; Z79.890 Hormone replacement therapy; Z79.84 Long term (current) use of oral hypoglycemic drugs; Z88.8 Allergy status to other drugs, medicaments and biological substances; Z88.5 Allergy status to narcotic agent; E66.09 Other obesity due to excess calories; Z68.31 Body mass index [BMI] 31.0-31.9, adult; G89.4 Chronic pain syndrome; Z80.1 Family history of malignant neoplasm of trachea, bronchus and lung; Z80.3 Family history of malignant neoplasm of breast; Z90.12 Acquired absence of left breast and nipple; Z79.899 Other long term (current) drug therapy
CPT/HCPCS: 64488; 88304; 80053; 85025; 88302; 49650; C1781; J2250; J0330; J1100; J2710; J0690; J2405; J3010; J1170 ×2; J2795; J2704; J1644; J2001

== ENCOUNTER → 2022-06-29 | Outpatient (CLI) | payer MEDICARE | END | disposition home or self-care (01) | LOC: LABWHC1 09:50 | PROVIDERS: ATTEND Internal Medicine Endocrinology, Diabetes & Metabolism | DX: C73 Malignant neoplasm of thyroid gland (principal) | CPT/HCPCS: 36415; 84432; 84443; 86800 ==

== ENCOUNTER 2022-07-03 15:16 | Emergency (ER) | payer MEDICARE ==
[2022-07-03] MEDS ORDERED: KETOROLAC 15 MG/ML 1 ML VIAL IM STA (17:13)
[2022-07-03] MEDS ORDERED: LIDOCAINE 5% PATCH TOPICAL SCH (17:15)
--- NOTE | 2022-07-03 17:16 | ED ---
General Adult HPI - General Chief complaint: Back Pain/Injury Stated complaint: lower back pain can't urinate Time Seen by Provider: 07/03/22 16:59 Source: patient, RN notes reviewed Mode of arrival: ambulatory Limitations: no limitations - History of Present Illness Initial comments: 57-year-old male with a past medical history significant for chronic low back pain presents to the emergency department with a chief complaint of low back pain. Patient reports that he was slashing history (earlier when he felt a tweak in his lower back and has felt pain ever since. He is taking [place] for his symptoms with mild symptomatic relief. He denies any recent fevers, saddle paresthesia, loss of bowel or bladder function. He denies any recent trauma or injury. He reports that he has a history of degenerative disc disease. He reports that he was having difficulty urinating earlier however upon obtaining the history patient reports that he was able to give a urinary sample. - Related Data Home Medications Medication Instructions Recorded Confirmed Cyclobenzaprine [Flexeril] 10 mg PO BID PRN 08/11/16 06/02/22 Levothyroxine Sodium [Levoxyl] 225 mcg PO DAILY 01/13/19 06/02/22 Calcium Citrate 500 mg PO DAILY 09/02/21 06/02/22 Folic Acid 1 mg PO DAILY 09/02/21 06/02/22 Gabapentin [Neurontin] 300 mg PO HS 09/02/21 06/02/22 HYDROcodone/APAP 7.5-325MG [[place] 1 tab PO Q6HR PRN 09/02/21 06/02/22 7.5-325] Multivit-Min/Folic/Vit K/Lycop 1 each PO DAILY 09/02/21 06/02/22 [Men's Multivitamin Tablet] metHOTREXate sodium [Methotrexate] 20 mg PO SA 09/02/21 06/02/22 Losartan Potassium [Cozaar] 50 mg PO HS 05/31/22 06/02/22 Metoprolol Succinate [Toprol XL] 50 mg PO DAILY 05/31/22 06/02/22 metFORMIN HCL 500 mg PO 1700 05/31/22 06/02/22 Previous Rx's Medication Instructions Recorded LORazepam [Ativan] 1 mg PO TID PRN 3 Days #9 tab 04/15/22 Acetaminophen Tab [Tylenol Tab] 1,000 mg PO Q6HR PRN #30 tablet 06/02/22 Ibuprofen [Motrin] 600 mg PO Q8HR PRN #30 tab 06/02/22 Ciprofloxacin HCl [Cipro] 500 mg PO Q12HR #20 tablet 07/03/22 Allergies Allergy/AdvReac Type Severity Reaction Status Date / Time primidone AdvReac emotional, Verified 07/03/22 15:34 depressed tramadol AdvReac States " Verified 07/03/22 15:34 feLT overwhelmed" CRYING Review of Systems ROS Statement: Those systems with pertinent positive or pertinent negative responses have been documented in the HPI. ROS Other: All systems not noted in ROS Statement are negative. Past Medical History Past Medical History: Cancer, Diabetes Mellitus, Hypertension, Musculoskeletal Disorder, Osteoarthritis (OA), Prostate Disorder, Rheumatoid Arthritis (RA), Thyroid Disorder Additional Past Medical History / Comment(s): Hx heart murmur as child, DDD w/ fusion L1-2, Freq UTI'S, BPH , hx thyroid cancer. "Pre-diabetes." Neuropathy BLE. Hx pos TB w/ tx. History of Any Multi-Drug Resistant Organisms: None Reported Past Surgical History: Back Surgery, Breast Surgery, Hernia Repair, Orthopedic Surgery, Tonsillectomy Additional Past Surgical History / Comment(s): 12/28/15 Completion thyroidectomy, Other surgical hx: Partial thyroidectomy, rhizotomy, back fusion, pain clinic procedures, aaron knee arthroscopy, left ankle surgery, left breast lumpectomy, BMT, AARON axillary lymph node removed, Rt mastectomy 08/2016, COLONOSCOPY, abd hernia Past Anesthesia/Blood Transfusion Reactions: Previous Problems w/ Anesthesia, Postoperative Nausea & Vomiting (PONV) Additional Past Anesthesia/Blood Transfusion Reaction / Comment(s): Hx trouble urinating post-op, states he "comes out mad and angry", last two surgeries had no problems urinating. No problems with aggression after MAC anesthesia. Past Psychological History: No Psychological Hx Reported Smoking Status: Never smoker Past Alcohol Use History: None Reported Past Drug Use History: None Reported - Past Family History Father Family Medical History: Cancer Additional Family Medical History / Comment(s): Lung cancer, w/ Metastatic cancer- Mother Family Medical History: Cancer Additional Family Medical History / Comment(s): stomach cancer Sister(s) Family Medical History: Cancer Additional Family Medical History / Comment(s): melanoma cancer; 1 other sister w/ breast cancer, line maintainer section cancer General Exam Limitations: no limitations General appearance: alert, in no apparent distress Head exam: Present: atraumatic, normocephalic, normal inspection Eye exam: Present: normal appearance, PERRL, EOMI. Absent: scleral icterus, conjunctival injection, periorbital swelling ENT exam: Present: normal exam, mucous membranes moist Neck exam: Present: normal inspection. Absent: tenderness, meningismus, lymphadenopathy Respiratory exam: Present: normal lung sounds bilaterally. Absent: respiratory distress, wheezes, rales, rhonchi, stridor Cardiovascular Exam: Present: regular rate, normal rhythm, normal heart sounds. Absent: systolic murmur, diastolic murmur, rubs, gallop, clicks GI/Abdominal exam: Present: soft, normal bowel sounds. Absent: distended, tenderness, guarding, rebound, rigid Extremities exam: Present: normal inspection, full ROM, normal capillary refill. Absent: tenderness, pedal edema, joint swelling, calf tenderness Back exam: Present: normal inspection Neurological exam: Present: alert, oriented X3, CN II-XII intact Psychiatric exam: Present: normal affect, normal mood Skin exam: Present: warm, dry, intact, normal color. Absent: rash Course Vital Signs 07/03/22 07/03/22 15:31 19:04 Temperature 97.2 F L 97.6 F Pulse Rate 101 H 90 Respiratory 20 18 Rate Blood Pressure 139/84 146/89 O2 Sat by Pulse 98 96 Oximetry Medical Decision Making - Medical Decision Making Was pt. sent in by a medical professional or institution (, PA, HIDE STRETCHER HAND, urgent care, hospital, or care home...) When possible be specific @ -[No] Did you speak to anyone other than the patient for history (EMS, parent, family, police, friend...)? What history was obtained from this source @ -[No] Did you review nursing and triage notes (agree or disagree)? Why? @ -[I reviewed and agree with nursing and triage notes] Were old charts reviewed (outside hosp., previous admission, EMS record, old EKG, old radiological studies, urgent care reports/EKG's, care home records)? Report findings @ -[No old charts were reviewed] Differential Diagnosis (chest pain, altered mental status, abdominal pain women, abdominal pain men, vaginal bleeding, weakness, fever, dyspnea, syncope, headache, dizziness, GI bleed, back pain, seizure, CVA, palpatations, mental health, musculoskeletal)? @ -[not applicable] EKG interpreted by me (3pts min.). @ -[As above] X-rays interpreted by me (1pt min.). @ -X-ray negative for any acute fracture or dislocation, mental fusion hardware remains intact CT interpreted by me (1pt min.). @ -[None done] U/S interpreted by me (1pt. min.). @ -[None done] What testing was considered but not performed or refused? (CT, X-rays, U/S, labs)? Why? @ -[None] What meds were considered but not given or refused? Why? @ -[None] Did you discuss the management of the patient with other professionals (professionals i.e. , PA, HIDE STRETCHER HAND, lab, RT, psych nurse, social media manager, aviation safety equipment technician, teacher, environmental protection officer, case aide)? Give summary @ -[No] Was smoking cessation discussed for >3mins.? @ -[No] Was critical care preformed (if so, how long)? @ -[No] Were there social determinants of health that impacted care today? How? (Homelessness, low income, unemployed, alcoholism, drug addiction, transportation, low edu. Level, literacy, decrease access to med. care, shelter, rehab)? @ -[No] Was there de-escalation of care discussed even if they declined (Discuss DNR or withdrawal of care, Hospice)? DNR status @ -[No] What co-morbidities impacted this encounter? (DM, HTN, Smoking, COPD, CAD, Cancer, CVA, ARF, Chemo, Hep., AIDS, mental health diagnosis, sleep apnea, morbid obesity)? @ -[None] Was patient admitted / discharged? Hospital course, mention meds given and route, prescriptions, significant lab abnormalities, going to OR and other pertinent info. @ --Discharged. This is a 57-year-old male who presents to the emergency department with back pain. Patient had a thorough physical exam and history obtained on the ED. Physical exam is essentially unremarkable heart rate regular rate and rhythm, lungs clear to auscultation bilaterally abdomen is soft and nontender vital signs are stable. Patient had lab work and imaging which were essentially unremarkable. I discussed the results in detail with the patient verbalized understanding and all questions were addressed. Patient patient was given Toradol and Lidoderm patch with symptomatic relief. He was instructed to take his Od[place] prescription at home as needed. Patient was given a prescription for ciprofloxacin for UTI. Return precautions were discussed at length. Patient discharged in stable condition. Case discussed with Dr. Fournier [facility] who agrees with plan of care Undiagnosed new problem with uncertain prognosis? @ -[No] Drug Therapy requiring intensive monitoring for toxicity (Heparin, Nitro, Insulin, Cardizem)? @ -[No] Were any procedures done? @ -[No] Diagnosis/symptom? @ -chronic low back pain - UTI Acute, or Chronic, or Acute on Chronic? @ -acute Uncomplicated (without systemic symptoms) or Complicated (systemic symptoms)? @ -uncomplicated Side effects of treatment? @ -[No] Exacerbation, Progression, or Severe Exacerbation? @ -[No] Poses a threat to life or bodily function? How? (Chest pain, [place], [place], pneumonia, PE, COPD, DKA, ARF, appy, cholecystitis, CVA, Diverticulitis, Homicidal, Suicidal, threat to staff... and all critical care pts) @ -low likelihood - Lab Data Lab Results 07/03/22 Range/Units 17:19 Urine Color Light Yellow Urine Appearance Cloudy (Clear) Urine pH 6.0 (5.0-8.0) Ur Specific [place] 1.009 (1.001-1.035) Urine Protein Negative (Negative) Urine Glucose (UA) Negative (Negative) Urine Ketones Negative (Negative) Urine Blood Negative (Negative) Urine Nitrite Negative (Negative) Urine Bilirubin Negative (Negative) Urine Urobilinogen <2.0 (<2.0) mg/dL Ur Leukocyte Esterase Large H (Negative) Urine RBC 1 (0-5) /hpf Urine WBC 107 H (0-5) /hpf Ur Squamous Epith Cells <1 (0-4) /hpf Urine Bacteria Few H (None) /hpf Urine Mucus Rare H (None) /hpf Disposition Clinical Impression: Mechanical back pain Disposition: HOME SELF-CARE Condition: Stable Instructions (If sedation given, give patient instructions): Acute Low Back Pain (ED) Additional Instructions: These return to the nearest emergency department if symptoms worsen or persist Prescriptions: Ciprofloxacin HCl [Cipro] 500 mg PO Q12HR #20 tablet Is patient prescribed a controlled substance at d/c from ED?: No Referrals: Santi Luque DO [Primary Care Provider] - 1-2 days Time of Disposition: 18:33
--- NOTE | 2022-07-03 17:40 | XR ---
EXAMINATION TYPE: XR lumbar spine 2 or 3V DATE OF EXAM: 07/03/2022 CLINICAL HISTORY: Low back pain TECHNIQUE: Frontal and lateral images of the lumbar spine are obtained. COMPARISON: Lumbar spine x-rays 2009 FINDINGS: There are 5 lumbar type vertebral bodies redemonstrated. The lumbar spine shows stable an d satisfactory alignment without evidence of acute fracture or dislocation. Stable moderate disc spac e narrowing L1-L2 level. There are new bilateral Posterior interpedicular rods and screws L1-L2 level. Vertebral body heights and disk space heights o therwise are within normal limits. The overlying soft tissue appears unremarkable. IMPRESSION: As above. No significant change from prior.
[2022-07-03 18:01] LABS: Appearance,Urine Cloudy (Clear); Bacteria,Urine Few /hpf; Bilirubin,Urine Negative (Negative); Blood,Urine Negative (Negative); Color,Urine Light Yellow; Glucose,Urine (UA) Negative (Negative); Ketones,Urine Negative (Negative); Leukocyte Esterase,Urine Large (Negative); Mucus,Urine Rare /hpf; Nitrite,Urine Negative (Negative); Protein,Urine Negative (Negative); RBC,Urine 1 /hpf (0-5); Specific Gravity,Urine 1.009 (1.001-1.035); Squamous Epithelial Cell,Urine <1 /hpf (0-4); Urobilinogen,Urine <2.0 mg/dL (<2.0); WBC,Urine 107 /hpf (0-5)
[2022-07-03] MEDS ORDERED: CIPROFLOXACIN HCL 500 MG TAB PO STA (18:46)
[2022-07-03 19:06] VITALS: BP 146/89; PULSE 90; RESP 18; TEMP 97.6
== END 2022-07-03 19:06 | disposition home or self-care (01) ==
LOC: EC 15:16
DX: M54.50 Low back pain, unspecified (principal); E11.9 Type 2 diabetes mellitus without complications; I10 Essential (primary) hypertension; M19.90 Unspecified osteoarthritis, unspecified site; E07.9 Disorder of thyroid, unspecified; M06.9 Rheumatoid arthritis, unspecified; Z88.8 Allergy status to other drugs, medicaments and biological substances; Z88.6 Allergy status to analgesic agent; Z79.890 Hormone replacement therapy; Z79.84 Long term (current) use of oral hypoglycemic drugs; Z79.899 Other long term (current) drug therapy
CPT/HCPCS: 81001; 72100; 99283; 96372; J1885

== ENCOUNTER → 2022-08-22 | Outpatient (CLI) | payer MEDICARE ==
--- NOTE | 2022-08-22 15:13 | P.SLEEP ---
History of Present Illness H&P Date: 08/22/22 This is a 57-year-old male patient was referred to me for consideration of sleep apnea. The patient was referred to him by his front office administrator. Noted the patient has a long list of medical problems and comorbidities. He snores. He is . He lives alone. He has not been noted to stop breathing during sleep. No episodes of waking up choking or gasping for air. No nocturnal grinding, sleepwalking, sleep talking, kicking, restlessness, talking, and no reported palpitations or heartburn or night terrors or anxiety. The patient has issues with known to you. Nevertheless, he also has BPH and he has had previous UTIs in the past. The patient has chronic back pain and he has undergone lumbar spine fusion with subsequent injections to his back and rhizotomy. He has issues with chronic pain along with a component of ankylosing spondylitis which makes him quite uncomfortable during sleep. In enervates, he is unable to fall asleep immediately. It takes him few hours to fall asleep sometimes between midnight and 2 AM. He watches television. He gets out of bed at around 7 AM in the morning. As such, is averaging around 5-6 hours of sleep. He doesn't take any naps during the day. No hypersomnia during the day. His Loring score is only at 5. Does not fall asleep while driving long distances. Is a nose breather. Denies having a dry mouth in the morning. The patient's report sleep fragmentation due to pain and urination. No recent weight gain. In fact he has been losing weight. He has undergone also total Thyroidectomy for an underlying thyroid cancer. He recently underwent a in the abdominal wall hernia repair. No personal or family history of sleep apnea. Review of Systems Eyes: denies as per HPI, denies blurred vision, denies bulging eye, denies decreased vision, denies diplopia, denies discharge, denies dry eye, denies irritation, denies itching, denies pain, denies photophobia, denies loss of peripheral vision, denies loss of vision, denies tunnel vision/blind spots Ears: deny: decreased hearing, ear discharge, earache, tinnitus Past Medical History Past Medical History: Cancer (thyroid cancer), Diabetes Mellitus, Hypertension, Musculoskeletal Disorder, Osteoarthritis (OA), Prostate Disorder, Rheumatoid Arthritis (RA), Thyroid Disorder Additional Past Medical History / Comment(s): Hx heart murmur as child, DDD w/ fusion L1-2, Freq UTI'S, BPH , hx thyroid cancer. "Pre-diabetes." Neuropathy BLE. Hx pos TB w/ tx. History of Any Multi-Drug Resistant Organisms: None Reported Past Surgical History: Back Surgery, Breast Surgery, Hernia Repair, Orthopedic Surgery, Tonsillectomy Additional Past Surgical History / Comment(s): 12/28/15 Completion thyroidectomy, Other surgical hx: Partial thyroidectomy, rhizotomy, back fusion, pain clinic procedures, aaron knee arthroscopy, left ankle surgery, left breast lumpectomy, BMT, AARON axillary lymph node removed, Rt mastectomy 08/2016, COLONOSCOPY, abdominal hernia repair Past Anesthesia/Blood Transfusion Reactions: Previous Problems w/ Anesthesia, Postoperative Nausea & Vomiting (PONV) Additional Past Anesthesia/Blood Transfusion Reaction / Comment(s): Hx trouble urinating post-op, states he "comes out mad and angry", last two surgeries had no problems urinating. No problems with aggression after MAC anesthesia. Past Psychological History: No Psychological Hx Reported Smoking Status: Never smoker Past Alcohol Use History: None Reported Past Drug Use History: None Reported - Past Family History Father Family Medical History: Cancer Additional Family Medical History / Comment(s): Lung cancer, w/ Metastatic cancer- Mother Family Medical History: Cancer Additional Family Medical History / Comment(s): stomach cancer Sister(s) Family Medical History: Cancer Additional Family Medical History / Comment(s): melanoma cancer; 1 other sister w/ breast cancer, client support associate cancer Medications and Allergies Home Medications Medication Instructions Recorded Confirmed Type Cyclobenzaprine [Flexeril] 10 mg PO BID PRN 08/11/16 06/02/22 History Levothyroxine Sodium [Levoxyl] 225 mcg PO DAILY 01/13/19 06/02/22 History Calcium Citrate 500 mg PO DAILY 09/02/21 06/02/22 History Folic Acid 1 mg PO DAILY 09/02/21 06/02/22 History Gabapentin [Neurontin] 300 mg PO HS 09/02/21 06/02/22 History HYDROcodone/APAP 7.5-325MG [[place] 1 tab PO Q6HR PRN 09/02/21 06/02/22 History 7.5-325] Multivit-Min/Folic/Vit K/Lycop 1 each PO DAILY 09/02/21 06/02/22 History [Men's Multivitamin Tablet] metHOTREXate sodium [Methotrexate] 20 mg PO SA 09/02/21 06/02/22 History LORazepam [Ativan] 1 mg PO TID PRN 3 Days #9 tab 04/15/22 06/02/22 Rx Losartan Potassium [Cozaar] 50 mg PO HS 05/31/22 06/02/22 History Metoprolol Succinate [Toprol XL] 50 mg PO DAILY 05/31/22 06/02/22 History metFORMIN HCL 500 mg PO 1700 05/31/22 06/02/22 History Acetaminophen Tab [Tylenol Tab] 1,000 mg PO Q6HR PRN #30 tablet 06/02/22 Rx Ibuprofen [Motrin] 600 mg PO Q8HR PRN #30 tab 06/02/22 Rx Ciprofloxacin HCl [Cipro] 500 mg PO Q12HR #20 tablet 07/03/22 Rx Allergies Allergy/AdvReac Type Severity Reaction Status Date / Time primidone AdvReac emotional, Verified 07/03/22 15:34 depressed tramadol AdvReac States " Verified 07/03/22 15:34 feLT overwhelmed" CRYING Physical Exam BP is 122/86 with a pulse of 84 and the respiration of 16 and a temperature of 98.0 with a pulse ox of 96% on room air. The size of the neck is 17 3/4 inches and patient has a body mass index of 32.5, current Loring score is at 5. The patient appeared well nourished and normally developed. Vital signs as documented. Head exam is unremarkable. No scleral icterus or corneal arcus noted. Neck is without jugular venous distension, thyromegaly, or carotid bruits. Carotid upstrokes are brisk bilaterally. the patient is a Mallampati class IV with significant crowding of the posterior oropharynxLungs are clear to auscultation and percussion. Cardiac exam reveals the PMI to be normally sized and situated. Rhythm is regular. First and second heart sounds normal. No murmurs, rubs or gallops. Abdominal exam reveals normal bowel sounds, no masses, no organomegaly and no aortic enlargement.the patient has fresh abdominal betancourt wounds post anterior abdominal wall hernia repair. Extremities are nonedematous and both femoral and pedal pulses are normal.Examination of the skin revealed no evidence of significant rashes, suspicious appearing nevi or other concerning lesions.Neurologically, the patient is awake and alert and the patient does not have any focal neurological deficit. Cranial nerves are essentially intact. Assessment and Plan Plan: snoring symptoms along with sleep fragmentation most likely related to underlying comorbidities. Possibility of underlying DAVINA felt to be less likely. Nevertheless, sleep evaluation was requested by his front office administrator and the patient was found to have some abnormal findings on echocardiogram probably related to some pulmonary hypertension with right-sided enlargement No major hypersomnia and the patient's a Loring score is at 5 History of obesity and the patient has lost weight and current body mass index is down to 32.5 with a weight of 217 pounds Hypertension Rheumatoid arthritis, maintain on immunosuppressive therapy including methotrexate and he is also on Naprosyn. Chronic back pain with previous lumbar spine fusion and previous rhizotomy and the patient has been seen various pain clinics for various interventions Thyroid cancer post thyroidectomy Left breast lumpectomy with lymph node dissection and subsequent right mastectomy previous history of tuberculosis, treated medically with full recovery. Diabetes mellitus type 2 Hypertension Hypothyroidism post thyroidectomy History of BPH with frequent UTIs Chronic pain Colonic hyperplastic adenoma postresection back in 2017 Ankylosing spondylitis Plan Low clinical suspicion for obstructive sleep apnea based on reported history. We will undergo a home sleep study to screen this patient for obstructive sleep apnea and decide accordingly treatment is needed. Sleep Note - Sleep Note Sleep Note: Temperature: Pulse Rate: Respiratory Rate: Blood Pressure: SpO2: Height: Weight: BMI: Neck Circumference:
== END ==
LOC: 3 N SLEEP 14:42
PROVIDERS: ATTEND Internal Medicine Critical Care Medicine
DX: G47.33 Obstructive sleep apnea (adult) (pediatric) (principal); E66.9 Obesity, unspecified; I10 Essential (primary) hypertension; M06.9 Rheumatoid arthritis, unspecified; M45.9 Ankylosing spondylitis of unspecified sites in spine; G89.29 Other chronic pain; E11.9 Type 2 diabetes mellitus without complications; Z87.438 Personal history of other diseases of male genital organs; Z86.11 Personal history of tuberculosis; Z98.890 Other specified postprocedural states; Z68.32 Body mass index [BMI] 32.0-32.9, adult; Z90.13 Acquired absence of bilateral breasts and nipples; Z88.5 Allergy status to narcotic agent; Z88.8 Allergy status to other drugs, medicaments and biological substances; Z79.899 Other long term (current) drug therapy; Z79.84 Long term (current) use of oral hypoglycemic drugs
CPT/HCPCS: 99211

== ENCOUNTER → 2022-10-19 | Outpatient (CLI) | payer MEDICARE | END | disposition home or self-care (01) | LOC: LABWHC1 11:58 | PROVIDERS: ATTEND Internal Medicine Endocrinology, Diabetes & Metabolism | DX: C73 Malignant neoplasm of thyroid gland (principal) | CPT/HCPCS: 36415; 84432; 84443; 86800 ==

== ENCOUNTER → 2023-01-15 | Outpatient (CLI) | payer MEDICARE | END | disposition home or self-care (01) | LOC: LABWHC1 15:30 | PROVIDERS: ATTEND Internal Medicine Endocrinology, Diabetes & Metabolism | DX: C73 Malignant neoplasm of thyroid gland (principal) | CPT/HCPCS: 36415; 84432; 84443; 86800 ==

== ENCOUNTER → 2023-07-03 | Outpatient (CLI) | payer MEDICARE ==
--- NOTE | 2023-07-03 18:54 | US ---
EXAMINATION TYPE: US scrotum with doppler. Grayscale and color Doppler Duplex imaging performed of t [place] scrotum. DATE OF EXAM: 07/03/2023 COMPARISON: NONE CLINICAL INDICATION: Male, 58 years old with history of HYDROCELE, UNSPECIFIED; swelling to left test icle and patient aware it is fluid collection, is tender, no injury or h/o surgery EXAM MEASUREMENTS: TESTICLES: Right Testicle: 3.2 x 2.5 x 1.6 cm Left Testicle: 3.4 x 3.4 x 2.3 cm EPIDIDYMIS HEAD: Right Epididymis: 0.4 cm Left Epididymis: 0.9 cm Doppler performed to assess for testicular vascularity; good bilateral color flow and waveforms are s een. There is no evidence of testicular torsion. Presence of hydroceles: yes, moderate on the left Presence of varicoceles: no There is no testicular mass or calcification. There is no scrotal thickening. There is no epididymal mass or enlargement. IMPRESSION: 1. Interval development of a moderate left hydrocele. 2. No other significant abnormality seen.
== END | disposition home or self-care (01) ==
LOC: RADUSWWP 09:51
PROVIDERS: ATTEND Family Medicine
DX: N43.3 Hydrocele, unspecified (principal)
CPT/HCPCS: 76870; 93975

== ENCOUNTER → 2023-12-03 | Outpatient (CLI) | payer MEDICARE ==
[2023-12-03 21:49] LABS: Chol/HDL Ratio 2.44 Ratio
== END | disposition home or self-care (01) ==
LOC: LABWHC1 12:27
PROVIDERS: ATTEND Internal Medicine Endocrinology, Diabetes & Metabolism
DX: C73 Malignant neoplasm of thyroid gland
CPT/HCPCS: 36415; 80061; 84432; 84443; 86800

== ENCOUNTER → 2023-12-03 | Outpatient (CLI) | payer MEDICARE ==
--- NOTE | 2023-12-03 18:26 | US ---
EXAMINATION TYPE: US thyroid st tissue head/neck DATE OF EXAM: 12/03/2023 COMPARISON: US 2021 CLINICAL INDICATION: Male, 58 years old with history of C73 THYROID CANCER; Hx thyroid cancer. Thyroi d removed in 2013. Patient is on levothyroxine. GLAND SIZE: Right Lobe: Surgically absent. Left Lobe: Surgically absent. Isthmus Thickness: Surgically absent. Hypoechoic area with hyperechoic center seen that appears to be possibly inferior to the right thyroi d bed: 08 x 0.6 x 0.3 cm. Area was seen on prior ultrasound. Bilateral neck scanned. Hypoechoic area with hyperechoic center seen right neck: 2.2 x 1.1 x 0.5 cm. Cortex measures 4 mm. Hypoechoic area with hyperechoic center seen: 1.5 x 1.0 x 0.6 cm. Cortex measures: 4 mm. IMPRESSION: Surgical absence of the thyroid gland without evidence for recurrent mass. Small lymph nodes as discu ssed. 2017 ACR TI-RADS LEVEL: *Highest TI-RADS level nodule reported In [facility], , 12/03/2023 6:23 PM
== END | disposition home or self-care (01) ==
LOC: RADUSWWP 12:17
PROVIDERS: ATTEND Internal Medicine Endocrinology, Diabetes & Metabolism
DX: C73 Malignant neoplasm of thyroid gland
CPT/HCPCS: 76536

== ENCOUNTER 2024-01-26 12:24 | Emergency (ER) | payer MEDICARE ==
[2024-01-26 12:41] VITALS: BP 124/82; PULSE 70; RESP 18; TEMP 98.3
--- NOTE | 2024-01-26 13:19 | ED ---
Male Urogenital HPI - General Chief complaint: Urogenital Stated complaint: Possible UTI Time Seen by Provider: 01/26/24 12:43 Source: patient, RN notes reviewed Mode of arrival: ambulatory Limitations: no limitations - History of Present Illness Initial comments: This is a 58-year-old male who presents to the emergency department for concerns of a UTI. Patient states that he is prone to recurrent UTIs and for the last 4 days he has had intermittent bouts of burning with urination and suprapubic pressure. States that it feels like the last time he had a UTI. He has chronic back pain that he does not believe is any worse than normal. Denies any fevers, chills, nausea, or vomiting. MD Complaint: dysuria - Related Data Home Medications Medication Instructions Recorded Confirmed Cyclobenzaprine [Flexeril] 10 mg PO BID PRN 08/11/16 06/02/22 Levothyroxine Sodium [Levoxyl] 225 mcg PO DAILY 01/13/19 06/02/22 Calcium Citrate 500 mg PO DAILY 09/02/21 06/02/22 Folic Acid 1 mg PO DAILY 09/02/21 06/02/22 Gabapentin [Neurontin] 300 mg PO HS 09/02/21 06/02/22 HYDROcodone/APAP 7.5-325MG [[place] 1 tab PO Q6HR PRN 09/02/21 06/02/22 7.5-325] Multivit-Min/Folic/Vit K/Lycop 1 each PO DAILY 09/02/21 06/02/22 [Men's Multivitamin Tablet] metHOTREXate sodium [Methotrexate] 20 mg PO SA 09/02/21 06/02/22 Losartan Potassium [Cozaar] 50 mg PO HS 05/31/22 06/02/22 Metoprolol Succinate [Toprol XL] 50 mg PO DAILY 05/31/22 06/02/22 metFORMIN HCL 500 mg PO 1700 05/31/22 06/02/22 Previous Rx's Medication Instructions Recorded LORazepam [Ativan] 1 mg PO TID PRN 3 Days #9 tab 04/15/22 Acetaminophen Tab [Tylenol Tab] 1,000 mg PO Q6HR PRN #30 tablet 06/02/22 Ibuprofen [Motrin] 600 mg PO Q8HR PRN #30 tab 06/02/22 Ciprofloxacin HCl [Cipro] 500 mg PO Q12HR #20 tablet 04/24/23 Ciprofloxacin HCl [Cipro] 500 mg PO Q12HR 7 Days #14 tab 01/26/24 Allergies Allergy/AdvReac Type Severity Reaction Status Date / Time primidone AdvReac emotional, Verified 07/03/22 15:34 depressed tramadol AdvReac States " Verified 07/03/22 15:34 feLT overwhelmed" CRYING Review of Systems ROS Statement: Those systems with pertinent positive or pertinent negative responses have been documented in the HPI. ROS Other: All systems not noted in ROS Statement are negative. Past Medical History Past Medical History: Cancer, Diabetes Mellitus, Hypertension, Musculoskeletal Disorder, Osteoarthritis (OA), Prostate Disorder, Rheumatoid Arthritis (RA), Thyroid Disorder Additional Past Medical History / Comment(s): Hx heart murmur as child, DDD w/ fusion L1-2, Freq UTI'S, BPH , hx thyroid cancer. "Pre-diabetes." Neuropathy BLE. Hx pos TB w/ tx. History of Any Multi-Drug Resistant Organisms: None Reported Past Surgical History: Back Surgery, Breast Surgery, Hernia Repair, Orthopedic Surgery, Tonsillectomy Additional Past Surgical History / Comment(s): 12/28/15 Completion thyroidectomy, Other surgical hx: Partial thyroidectomy, rhizotomy, back fusion, pain clinic procedures, aaron knee arthroscopy, left ankle surgery, left breast lumpectomy, BMT, AARON axillary lymph node removed, Rt mastectomy 08/2016, COLONOSCOPY, abdominal hernia repair Past Anesthesia/Blood Transfusion Reactions: Previous Problems w/ Anesthesia, Postoperative Nausea & Vomiting (PONV) Additional Past Anesthesia/Blood Transfusion Reaction / Comment(s): Hx trouble urinating post-op, states he "comes out mad and angry", last two surgeries had no problems urinating. No problems with aggression after MAC anesthesia. Past Psychological History: No Psychological Hx Reported Smoking Status: Never smoker Past Alcohol Use History: None Reported Past Drug Use History: None Reported - Past Family History Father Family Medical History: Cancer Additional Family Medical History / Comment(s): Lung cancer, w/ Metastatic cancer- Mother Family Medical History: Cancer Additional Family Medical History / Comment(s): stomach cancer Sister(s) Family Medical History: Cancer Additional Family Medical History / Comment(s): melanoma cancer; 1 other sister w/ breast cancer, bearing ring assembler cancer General Exam Limitations: no limitations General appearance: alert, in no apparent distress Head exam: Present: atraumatic, normocephalic, normal inspection Respiratory exam: Present: normal lung sounds bilaterally. Absent: respiratory distress, wheezes, rales, rhonchi, stridor Cardiovascular Exam: Present: regular rate, normal rhythm, normal heart sounds. Absent: systolic murmur, diastolic murmur, rubs, gallop, clicks GI/Abdominal exam: Present: soft, tenderness (Suprapubic), normal bowel sounds. Absent: distended Neurological exam: Present: alert, oriented X3, CN II-XII intact Psychiatric exam: Present: normal affect, normal mood Skin exam: Present: warm, dry, intact, normal color. Absent: rash Course Vital Signs 01/26/24 12:38 Temperature 98.3 F Pulse Rate 70 Respiratory 18 Rate Blood Pressure 124/82 O2 Sat by Pulse 97 Oximetry Medical Decision Making - Medical Decision Making This is a 58-year-old male who presents to the emergency department for urinary symptoms. Was pt. sent in by a medical professional or institution? @ -No Did you speak to anyone other than the patient for history? @ -No Did you review nursing and triage notes? @ -Yes, and I agree, it is accurate with regards to the patient's symptoms. Were old charts reviewed? @ -No Differential Diagnosis? @ -UTI, STI, pyelonephritis, BPH, this is not meant to be an all-inclusive list. EKG interpreted by me (3pts min.)? @ -Not obtained X-rays interpreted by me (1pt min.)? @ -Not obtained CT interpreted by me (1pt min.)? @ -Not obtained U/S interpreted by me (1pt. min.)? @ -Not obtained What testing was considered but not performed? (CT, X-rays, U/S, labs)? Why? @ -None What meds were considered but not given? Why? @ -None Did you discuss the management of the patient with other professionals? @ -No Did you reconcile home meds? @ -No Was smoking cessation discussed for >3mins.? @ -No Was critical care preformed (if so, how long)? @ -No Were there social determinants of health that impacted care today? How? (Homelessness, low income, unemployed, alcoholism, drug addiction, transportation, low edu. Level, literacy, decrease access to med. care, group home, rehab)? @ -No Was there de-escalation of care discussed even if they declined? (Discuss DNR or withdrawal of care, Hospice)? @ -No What co-morbidities impacted this encounter? (DM, HTN, Smoking, COPD, CAD, Cancer, CVA, Hep., AIDS, mental health diagnosis, sleep apnea, morbid obesity)? @ -DM, BPH Was patient admitted / discharged? @ -Discharged. Urinalysis had only a mild elevation in white blood cells, it was not overly suggestive of infection. Urine sent for culture. Patient is fairly adamant that his presentation is consistent with prior UTIs and he does not want one to get out of control. States that he is always treated with Cipro. Given his history and problems with rapid progression, Cipro was sent in. Patient states that he will follow-up with Dr. Alvarez, who he follows with closely for his urological issues. Patient discharged home in stable condition. Case discussed with ED attending Dr. Jin. Return precautions reviewed in depth, the patient is instructed to return to the emergency department with any new, worsening, or concerning symptoms. Patient verbalized understanding. Undiagnosed new problem with uncertain prognosis? @ -None Drug Therapy requiring intensive monitoring for toxicity (Heparin, Nitro, Insulin, Cardizem)? @ -None Were any procedures done? @ -None Diagnosis/symptom? @ -Urinary symptoms Acute, or Chronic, or Acute on Chronic? @ -Acute Uncomplicated (without systemic symptoms) or Complicated (systemic symptoms)? @ -Uncomplicated Side effects of treatment? @ -None Exacerbation, Progression, or Severe Exacerbation] @ -Not applicable Poses a threat to life or bodily function? @ -No - Lab Data Lab Results 01/26/24 Range/Units 13:14 Urine Color Yellow Urine Appearance Clear (Clear) Urine pH 5.5 (5.0-8.0) Ur Specific [place] 1.011 (1.001-1.035) Urine Protein Negative (Negative) Urine Glucose (UA) Negative (Negative) Urine Ketones Negative (Negative) Urine Blood Negative (Negative) Urine Nitrite Negative (Negative) Urine Bilirubin Negative (Negative) Urine Urobilinogen <2.0 (<2.0) mg/dL Ur Leukocyte Esterase Trace H (Negative) Urine RBC <1 (0-5) /hpf Urine WBC 9 H (0-5) /hpf Ur Squamous Epith Cells 1 (0-4) /hpf Urine Mucus Rare H (None) /hpf Disposition Clinical Impression: Hx of recurrent urinary tract infection, Dysuria Disposition: HOME SELF-CARE Instructions (If sedation given, give patient instructions): Urinary Tract Infection in Men (ED) Additional Instructions: Return to the emergency department with any new, worsening, or concerning symptoms. Take the antibiotic as prescribed for 7 days. Follow up with your primary care provider or Dr. Alvarez. Prescriptions: Ciprofloxacin HCl [Cipro] 500 mg PO Q12HR 7 Days #14 tab Is patient prescribed a controlled substance at d/c from ED?: No Referrals: Santi Luque DO [Primary Care Provider] - 1-2 days Time of Disposition: 14:12
[2024-01-26 14:01] LABS: Appearance,Urine Clear (Clear); Bilirubin,Urine Negative (Negative); Blood,Urine Negative (Negative); Color,Urine Yellow; Glucose,Urine (UA) Negative (Negative); Ketones,Urine Negative (Negative); Leukocyte Esterase,Urine Trace (Negative); Mucus,Urine Rare /hpf; Nitrite,Urine Negative (Negative); PH, Urine 5.5 (5.0-8.0); Protein,Urine Negative (Negative); RBC,Urine <1 /hpf (0-5); Specific Gravity,Urine 1.011 (1.001-1.035); Squamous Epithelial Cell,Urine 1 /hpf (0-4); Urobilinogen,Urine <2.0 mg/dL (<2.0); WBC,Urine 9 /hpf (0-5)
== END 2024-01-26 14:34 | disposition home or self-care (01) ==
LOC: EC 12:24
DX: R30.0 Dysuria (principal); Z87.440 Personal history of urinary (tract) infections; N40.0 Benign prostatic hyperplasia without lower urinary tract symptoms; E11.40 Type 2 diabetes mellitus with diabetic neuropathy, unspecified; Z88.5 Allergy status to narcotic agent; Z88.8 Allergy status to other drugs, medicaments and biological substances; Z94.81 Bone marrow transplant status; Z79.84 Long term (current) use of oral hypoglycemic drugs
CPT/HCPCS: 81001; 87086; 99284

== ENCOUNTER 2024-02-19 10:59 | Emergency (ER) | payer MEDICARE ==
--- NOTE | 2024-02-19 11:41 | ED ---
Male Urogenital HPI - General Source: patient, RN notes reviewed Mode of arrival: ambulatory Limitations: no limitations <Sherri Dyson - Last Filed: 02/19/24 11:40> - General Source: patient, RN notes reviewed Mode of arrival: ambulatory Limitations: no limitations - History of Present Illness MD Complaint: dysuria Onset/Timin -: days(s) Severity scale (1-10): 1 Consistency: constant Reports: dysuria <Rios Ch - Last Filed: 02/19/24 16:04> - General Chief complaint: Urogenital Stated complaint: uti Time Seen by Provider: 02/19/24 11:38 - History of Present Illness Initial comments: Quick Note: This is a 59-year-old male who presents to the emergency department for low back pain and suprapubic discomfort. States that he was here last month for a UTI and feels like it never went away. He has occasional burning with urination and states that his urine is "bubbly ". Denies any fevers or chills. (Sherri Dyson) This is a 59-year-old male with history of DM, thyroid cancer and recurrent UTI presenting for bladder pain x 1 month. Patient endorses diagnosis of UTI last month, receiving ciprofloxacin at the time. Patient states he feels symptoms never fully resolved with ongoing bladder pressure, dysuria, decreased output and urinary odor. Patient also mentions reproducible low back pain. Denies fever, chills, hematuria, chest pain, dyspnea, N/V/D. (Rios Ch) - Related Data Home Medications Medication Instructions Recorded Confirmed Cyclobenzaprine [Flexeril] 10 mg PO BID PRN 08/11/16 06/02/22 Levothyroxine Sodium [Levoxyl] 225 mcg PO DAILY 01/13/19 06/02/22 Calcium Citrate 500 mg PO DAILY 09/02/21 06/02/22 Folic Acid 1 mg PO DAILY 09/02/21 06/02/22 Gabapentin [Neurontin] 300 mg PO HS 09/02/21 06/02/22 HYDROcodone/APAP 7.5-325MG [Lyman 1 tab PO Q6HR PRN 09/02/21 06/02/22 7.5-325] Multivit-Min/Folic/Vit K/Lycop 1 each PO DAILY 09/02/21 06/02/22 [Men's Multivitamin Tablet] metHOTREXate sodium [Methotrexate] 20 mg PO SA 09/02/21 06/02/22 Losartan Potassium [Cozaar] 50 mg PO HS 05/31/22 06/02/22 Metoprolol Succinate [Toprol XL] 50 mg PO DAILY 05/31/22 06/02/22 metFORMIN HCL 500 mg PO 1700 05/31/22 06/02/22 Previous Rx's Medication Instructions Recorded LORazepam [Ativan] 1 mg PO TID PRN 3 Days #9 tab 04/15/22 Acetaminophen Tab [Tylenol Tab] 1,000 mg PO Q6HR PRN #30 tablet 06/02/22 Ibuprofen [Motrin] 600 mg PO Q8HR PRN #30 tab 06/02/22 Ciprofloxacin HCl [Cipro] 500 mg PO Q12HR #20 tablet 07/03/22 Ciprofloxacin HCl [Cipro] 500 mg PO Q12HR 7 Days #14 tab 01/26/24 Allergies Allergy/AdvReac Type Severity Reaction Status Date / Time primidone AdvReac emotional, Verified 02/19/24 11:42 depressed tramadol AdvReac States " Verified 02/19/24 11:42 feLT overwhelmed" CRYING Review of Systems ROS Other: All systems not noted in ROS Statement are negative. <Sherri Dyson - Last Filed: 02/19/24 11:40> ROS Other: All systems not noted in ROS Statement are negative. <Rios Ch - Last Filed: 02/19/24 16:04> ROS Statement: Those systems with pertinent positive or pertinent negative responses have been documented in the HPI. Past Medical History Past Medical History: Cancer, Diabetes Mellitus, Hypertension, Musculoskeletal Disorder, Osteoarthritis (OA), Prostate Disorder, Rheumatoid Arthritis (RA), Thyroid Disorder Additional Past Medical History / Comment(s): Hx heart murmur as child, DDD w/ fusion L1-2, Freq UTI'S, BPH , hx thyroid cancer. "Pre-diabetes." Neuropathy BLE. Hx pos TB w/ tx. History of Any Multi-Drug Resistant Organisms: None Reported Past Surgical History: Back Surgery, Breast Surgery, Hernia Repair, Orthopedic Surgery, Tonsillectomy Additional Past Surgical History / Comment(s): 12/28/15 Completion thyroidectomy, Other surgical hx: Partial thyroidectomy, rhizotomy, back fusion, pain clinic procedures, aaron knee arthroscopy, left ankle surgery, left breast lumpectomy, BMT, AARON axillary lymph node removed, Rt mastectomy 08/2016, COLONOSCOPY, abdominal hernia repair Past Anesthesia/Blood Transfusion Reactions: Previous Problems w/ Anesthesia, Postoperative Nausea & Vomiting (PONV) Additional Past Anesthesia/Blood Transfusion Reaction / Comment(s): Hx trouble urinating post-op, states he "comes out mad and angry", last two surgeries had no problems urinating. No problems with aggression after MAC anesthesia. Past Psychological History: No Psychological Hx Reported Smoking Status: Never smoker Past Alcohol Use History: None Reported Past Drug Use History: None Reported - Past Family History Father Family Medical History: Cancer Additional Family Medical History / Comment(s): Lung cancer, w/ Metastatic cancer- Mother Family Medical History: Cancer Additional Family Medical History / Comment(s): stomach cancer Sister(s) Family Medical History: Cancer Additional Family Medical History / Comment(s): melanoma cancer; 1 other sister w/ breast cancer, library services coordinator cancer <Sherri Dyson - Last Filed: 02/19/24 11:40> General Exam <Sherri Dyson - Last Filed: 02/19/24 11:40> General appearance: alert, in no apparent distress Head exam: Present: atraumatic, normocephalic, normal inspection Eye exam: Present: normal appearance, PERRL, EOMI. Absent: scleral icterus, conjunctival injection, periorbital swelling ENT exam: Present: normal exam, mucous membranes moist Neck exam: Present: normal inspection. Absent: tenderness, meningismus, lymphadenopathy Respiratory exam: Present: normal lung sounds bilaterally. Absent: respiratory distress, wheezes, rales, rhonchi, stridor Cardiovascular Exam: Present: regular rate, normal rhythm, normal heart sounds. Absent: systolic murmur, diastolic murmur, rubs, gallop, clicks GI/Abdominal exam: Present: soft, tenderness (Mild suprapubic tenderness without guarding), normal bowel sounds. Absent: distended, guarding, rebound, rigid Extremities exam: Present: normal inspection, full ROM, normal capillary refill. Absent: tenderness, pedal edema, joint swelling, calf tenderness Back exam: Present: normal inspection, paraspinal tenderness (Positive left thoracolumbar paraspinal muscle spasm and tenderness.). Absent: CVA tenderness (R), CVA tenderness (L) Neurological exam: Present: alert, oriented X3, CN II-XII intact Psychiatric exam: Present: normal affect, normal mood Skin exam: Present: warm, dry, intact, normal color. Absent: rash <Rios Ch - Last Filed: 02/19/24 16:04> - General Exam Comments Initial Comments: Visual Physical Exam Vital signs reviewed General: Well-appearing, nontoxic, no acute distress. Head: Normocephalic, atraumatic Eyes: PERRLA, EOMI ENT: Airway patent Chest: Nonlabored breathing Skin: No visual rash, normal skin tone Neuro: Alert and oriented 3 Musculoskeletal: No gross abnormalities (Sherri Dyson) Course Vital Signs 02/19/24 11:38 Temperature 98.3 F Pulse Rate 69 Respiratory 20 Rate Blood Pressure 128/83 O2 Sat by Pulse 98 Oximetry Medical Decision Making <Sherri Dyson - Last Filed: 02/19/24 11:40> <Rios Ch - Last Filed: 02/19/24 16:04> - Medical Decision Making I performed the QuickNote portion of this chart. Signed Sherri Dyson PA-C. (Sherri Dyson) Was pt. sent in by a medical professional or institution ([facility], [facility], urgent care, hospital, or shelter...) When possible be specific @ -[No] Did you speak to anyone other than the patient for history (EMS, parent, family, police, friend...)? What history was obtained from this source @ -[No] Did you review nursing and triage notes (agree or disagree)? Why? @ -[I reviewed and agree with nursing and triage notes] Were old charts reviewed (outside hosp., previous admission, EMS record, old EKG, old radiological studies, urgent care reports/EKG's, shelter records)? Report findings @ -[No old charts were reviewed] Differential Diagnosis (chest pain, altered mental status, abdominal pain women, abdominal pain men, vaginal bleeding, weakness, fever, dyspnea, syncope, headache, dizziness, GI bleed, back pain, seizure, CVA, palpatations, mental health, musculoskeletal)? @ -Differential Abdominal Pain Men: Appendicitis, cholecystitis, diverticulosis, ischemic bowel, pancreatitis, hepatitis, UTI, gastroenteritis, AAA, incarcerated hernia, bowel obstruction, constipation, inflammatory bowel, hepatitis, peptic ulcer disease, splenic infarction, perforated viscus, testicular torsion, this is not meant to be an all-inclusive list EKG interpreted by me (3pts min.). @ -Not done X-rays interpreted by me (1pt min.). @ -[None done] CT interpreted by me (1pt min.). @ -[None done] U/S interpreted by me (1pt. min.). @ -[None done] What testing was considered but not performed or refused? (CT, X-rays, U/S, labs)? Why? @ -[None] What meds were considered but not given or refused? Why? @ -[None] Did you discuss the management of the patient with other professionals (professionals i.e. , PA, [facility], lab, RT, psych nurse, social insurance administrator, garde manger, teacher, ski patrol officer, counseling case manager)? Give summary @ -[No] Was smoking cessation discussed for >3mins.? @ -[No] Was critical care preformed (if so, how long)? @ -[No] Were there social determinants of health that impacted care today? How? (Homelessness, low income, unemployed, alcoholism, drug addiction, transportation, low edu. Level, literacy, decrease access to med. care, penitentiary, rehab)? @ -[No] Was there de-escalation of care discussed even if they declined (Discuss DNR or withdrawal of care, Hospice)? DNR status @ -[No] What co-morbidities impacted this encounter? (DM, HTN, Smoking, COPD, CAD, Cancer, CVA, ARF, Chemo, Hep., AIDS, mental health diagnosis, sleep apnea, morbid obesity)? @ -[None] Was patient admitted / discharged? Hospital course, mention meds given and route, prescriptions, significant lab abnormalities, going to OR and other pertinent info. @ -[hospital course] Undiagnosed new problem with uncertain prognosis? @ -[No] Drug Therapy requiring intensive monitoring for toxicity (Heparin, Nitro, Insulin, Cardizem)? @ -[No] Were any procedures done? @ -[No] Diagnosis/symptom? @ -Cystitis Acute, or Chronic, or Acute on Chronic? @ -Acute on chronic Uncomplicated (without systemic symptoms) or Complicated (systemic symptoms)? @ -Uncomplicated Side effects of treatment? @ -[No] Exacerbation, Progression, or Severe Exacerbation? @ -[No] Poses a threat to life or bodily function? How? (Chest pain, [place], [place], pneumonia, PE, COPD, DKA, ARF, appy, cholecystitis, CVA, Diverticulitis, Homicidal, Suicidal, threat to staff... and all critical care pts) @ -[No] (Rios Ch) - Lab Data Lab Results 02/19/24 Range/Units 14:30 Urine Color Dark Yellow Urine Appearance Clear (Clear) Urine pH 6.0 (5.0-8.0) Ur Specific [place] 1.013 (1.001-1.035) Urine Protein Negative (Negative) Urine Glucose (UA) Negative (Negative) Urine Ketones Negative (Negative) Urine Blood Negative (Negative) Urine Nitrite Negative (Negative) Urine Bilirubin Negative (Negative) Urine Urobilinogen <2.0 (<2.0) mg/dL Ur Leukocyte Esterase Negative (Negative) Disposition <Sherri Dyson - Last Filed: 02/19/24 11:40> Is patient prescribed a controlled substance at d/c from ED?: No Time of Disposition: 16:02 <Rios hC - Last Filed: 02/19/24 16:04> Clinical Impression: Cystitis Disposition: HOME SELF-CARE Condition: Good Referrals: Santi Luque DO [Primary Care Provider] - 1-2 days
[2024-02-19 11:42] VITALS: TEMP 98.3
[2024-02-19 14:43] LABS: Appearance,Urine Clear (Clear); Bilirubin,Urine Negative (Negative); Blood,Urine Negative (Negative); Color,Urine Dark Yellow; Glucose,Urine (UA) Negative (Negative); Ketones,Urine Negative (Negative); Leukocyte Esterase,Urine Negative (Negative); Nitrite,Urine Negative (Negative); Protein,Urine Negative (Negative); Specific Gravity,Urine 1.013 (1.001-1.035); Urobilinogen,Urine <2.0 mg/dL (<2.0)
[2024-02-19 16:54] VITALS: BP 124/86; PULSE 71; RESP 18
== END 2024-02-19 16:53 | disposition home or self-care (01) ==
LOC: EC 10:59
DX: N30.90 Cystitis, unspecified without hematuria (principal); Z88.5 Allergy status to narcotic agent; Z88.8 Allergy status to other drugs, medicaments and biological substances
CPT/HCPCS: 81003; 99284

== ENCOUNTER → 2024-03-20 | Outpatient (CLI) | payer MEDICARE ==
--- NOTE | 2024-03-20 16:17 | PE ---
EXAMINATION TYPE: PET CT fusion skull to thigh DATE OF EXAM: 03/20/2024 COMPARISON: Prior PET/CT March 25, 2016 HISTORY: Thyroid cancer 2012 with thyroidectomy TECHNIQUE: Following the intravenous administration of 11.6 mCi of F-18 FDG, whole body images are p erformed from the skull base to the midthigh. Images are reviewed on the computer in the coronal, ax ial, and sagittal planes. Reconstructed rotating images are created on independent workstation and r eviewed on the computer. A localization and attenuation correction CT is performed in conjunction w ith the PET scan. SCAN: Subsequent Scan FINDINGS: HEAD AND NECK: Just superior and posterior to the right submandibular gland there is abnormal hyperm etabolic mass or lymph node axial image 13 series 17 measuring 1.4 x 1.1 cm with max SUV of 12.61. Th yroid gland is surgically absent inferior to this. There is additional asymmetric subcentimeter focus posterior right tongue base fusion axial image [address] correlate, max SUV is 10.07. No additional areas of suspicious abnormal hypermetabolic uptake. CHEST, MEDIASTINUM, AND HILAR REGION: No areas of abnormal hypermetabolic uptake. ABDOMEN AND PELVIS: No areas of suspicious abnormal hypermetabolic uptake. Normal excretion is seen. Nonspecific bowel uptake in the left and transverse colon is present. OSSEOUS STRUCTURES: No suspicious hypermetabolic uptake. OTHER CT: A mucous retention cyst or polyp in the posterior inferior right maxillary sinus is seen. Enlarged prostate consistent with BPH is present. IMPRESSION: Suspicious lesion right tongue base and right neck worrisome for new malignancy and assoc iated adenopathy. Advise ENT referral and direct visualization to further evaluate. [facility], , 03/20/2024 4:14 PM
== END | disposition home or self-care (01) ==
LOC: RADPETMAIN 12:18
PROVIDERS: ATTEND Family Medicine
DX: C73 Malignant neoplasm of thyroid gland (principal); Z85.850 Personal history of malignant neoplasm of thyroid
CPT/HCPCS: 78815; A9552

== ENCOUNTER → 2024-07-21 | Outpatient (CLI) | payer MEDICARE ==
--- NOTE | 2024-07-21 09:37 | US ---
EXAMINATION TYPE: US thyroid st tissue head/neck DATE OF EXAM: 07/21/2024 COMPARISON: US 12/03/2023 CLINICAL INDICATION: Male, 59 years old with history of I10 BENIGN HYPERTENSION; Thyroidectomy 2014 TECHNIQUE: Grayscale and color Doppler imaging of the thyroid gland. FINDINGS AND IMPRESSION: No residual tissue or abnormalities seen bilaterally. No suspicious nodules are identified. [facility], Workstation: [id number], 07/21/2024 9:34 AM
== END | disposition home or self-care (01) ==
LOC: RADUSWWP 08:54
PROVIDERS: ATTEND Internal Medicine Endocrinology, Diabetes & Metabolism
DX: C73 Malignant neoplasm of thyroid gland (principal)
CPT/HCPCS: 76536; 84432; 84443; 86800

== ENCOUNTER → 2024-08-28 | Outpatient (CLI) | payer MEDICARE ==
[2024-08-28 12:07] LABS: African American GFR (CKD) >90 (>60 ml/min/1.73 sqM); Blood Urea Nitrogen 13 mg/dL (9-20); Non-African American GFR(CKD) >90 (>60 ml/min/1.73 sqM)
--- NOTE | 2024-08-28 12:55 | CT ---
EXAMINATION TYPE: CT soft tissue neck w con DATE OF EXAM: 08/28/2024 12:44 PM COMPARISON: 10/14/2015. 03/20/2024. CLINICAL INDICATION: Male, 59 years old with history of R22.1 R mass base of tongue; PHH, base of ton johnie mass TECHNIQUE: Standard enhanced CT of the neck. Axial sections with coronal and sagittal reformats were obtained. Contrast used:100 mL of Isovue 300 with IV Contrast, (None if empty) Oral contrast used: (None if empty) CT DLP: 489.6 mGycm, Automated exposure control for dose reduction was used. FINDINGS: Brain: Visualized portions are grossly unremarkable. Orbits: Unremarkable Sinuses: Nearly completely opacified left maxillary sinus. Spaces of the neck: No definitive mass at the base of the right tongue visualized area of the right l ingual tonsil is thickened and nearly symmetrical to the left. No lymphadenopathy. Stable some is asy mmetrically thickened left adnexa correlates with calcification of the posterior hypopharynx. Musculoskeletal: No acute osseous pathology. Nuchal ligamentous patient's present. Mild multilevel de generation changes of the spine. Lymph nodes: Multiple nonenlarged lymph nodes are seen along both anterior chains of the neck. Vascular structures: Visualized major arteries are patent without evidence of aneurysm. Thoracic Inlet/airway: Airway is patent. The lung apices are clear. Soft tissues/Thyroid: Thyroid and remainder of the soft tissues are unremarkable. Other: none. IMPRESSION: 1. No definitive mass at the base of the right tongue visualized . The single tonsils are somewhat s ymmetrical with increased uptake on prior PET. Consider direct visualization. No lymphadenopathy iden tified. 2. Completely opacified left maxillary sinus. [facility], , 08/28/2024 12:53 PM
== END | disposition home or self-care (01) ==
LOC: RADCTMAIN 11:23
PROVIDERS: ATTEND Otolaryngology
DX: R22.1 Localized swelling, mass and lump, neck (principal)
CPT/HCPCS: 82565; 84520; 70491; 36415; Q9967